=== PATIENT | female | born 1955 | race Caucasian/White ===

== ENCOUNTER 2018-02-01 18:44 | Emergency (ER) | payer MEDICAID, SELFPAY ==
[2018-02-01 18:49] VITALS: BP 119/65; PULSE 107; RESP 26; TEMP 36.8
--- NOTE | 2018-02-01 19:22 | DI.RAD_ITS ---
SYMPTOM/DIAGNOSIS: PRODUCTIVE COUGH PA AND LATERAL CHEST: The heart is normal in size. The lungs are clear. The mediastinal structures and pleura appear intact. CONCLUSION: Normal chest.
--- NOTE | 2018-02-01 19:23 | ED.GENADUL_ITS ---
Discharge Plan Disposition Patient Disposition: HOME Discharge Details Chief Complaint: RespSymp Clinical Impression: Bronchitis Primary Care Provider: Ana Blake ED Provider: Chris Mckeon Home Meds and New Rx's Prescriptions: New azithromycin 250 mg tablet 250 mg PO DAILY 4 Days Qty: 4 RF: 0 Continue albuterol sulfate [ProAir HFA] 200 PUFF HFA aerosol inhaler 2 puff Inhalation Q4H PRN PRN (Reason: Cough) Qty: 1 RF: 0 Discharge Instructions Instructions: Acute Bronchitis (ED) Additional Instructions: Please use your inhaler as prescribed for shortness of breath or wheeze. Please take the full course of antibiotic as prescribed. Please contact your primary care physician to arrange follow-up. Return to the ER for any worsening or new concerning symptoms. Referrals: Ana Blake [Primary Care Provider] - Medical Decision Making [facility] Narrative Medical decision making narrative: 62-year-old female smoker here with cough for the past 11 day . Saturating well and in no respiratory distress. She does have some rhonchi on auscultation. Chest x-ray reviewed and interpreted by me: No pneumonia Patient was advised to use her albuterol inhaler as prescribed for wheezing. I suspect she has a viral bronchitis but given smoking history and persistence of symptoms consider superimposed bacterial process. I will treat her with azithromycin and have her follow-up with her primary care physician. Patient understands the importance of timely follow-up. I did advise her to come back immediately should she have any worsening or new concerning symptoms. HPI - General Adult General Mode of arrival: ambulatory . Date/Time Provider Initiated Documentation: 02/01/18 19:11 . Limitations to Documentation: no limitations . Information obtained by: patient . HPI Narrative: 62-year-old female smoker here with chief complaint of cough. She has had a cough for the past 11 days. Cough is worsening. Cough is productive of yellow sputum. She has associated intermittent subjective fever. She also notes some intermittent shortness of breath. Patient does have a tightness in her chest specifically when she coughs or takes a deep breath. Tightness feels like congestion. She does also have some sinus congestion as well. Related Data Previous Rx's Medication Instructions Recorded albuterol sulfate [ProAir HFA] 2 puff INHALATION Q4H PRN PRN #1 03/24/15 inh azithromycin 250 mg PO DAILY 4 Days #4 tab 02/01/18 Allergies Allergy/AdvReac Type Severity Reaction Status Date / Time ciprofloxacin Allergy Verified 04/05/17 12:39 metronidazole Allergy Verified 04/05/17 12:39 Sulfa (Sulfonamide Allergy Verified 04/05/17 12:39 Antibiotics) General Stated Complaint: RespSymp TOM: 3 Review of Systems Review of Systems All systems reviewed & are unremarkable except as noted in HPI and below Constitutional Reports fever(s) ENT Reports nasal congestion Respiratory Reports as per HPI Musculoskeletal Reports myalgias PFS Social History Smoking/Tobacco Use Status: Current every day Exam Const General: cooperative, no acute distress, well developed, acute distress and not in distress Orientation: alert and awake Limitations: mental status not altered HENMT Head: normal to inspection and normocephalic Mouth: moist mucous membranes Throat: posterior oropharynx normal, uvula midline, posterior oropharynx abnormal and no uvular edema Eyes General: appearance normal, both eyes and all related structures Conjunctivae: conjunctivae normal EOM: EOM intact bilaterally Neck Neck: trachea midline, supple and no lymphadenopathy noted Resp Effort & Inspection: normal respiratory effort, cough, not labored and no respiratory distress Auscultation: clear to auscultation bilaterally, no rales, rhonchi lower bilaterally and no wheezes Cardio Jugular venous pressure: no JVD Rate: regular rate Rhythm: regular rhythm Heart Sounds: S1 normal, S2 normal, no gallops, no murmurs and no rubs GI Palpation: soft and nontender Skin General skin exam: no rashes or lesions noted and dry skin Other: warm Neuro General: alert, awake and oriented x3 Extrem General: no pedal edema Psych Appearance: grossly normal Affect: normal affect Course Vital Signs Temperature 36.8 C 02/01/18 18:49 Pulse 107 H 02/01/18 18:49 Respiratory Rate 26 H 02/01/18 18:49 Blood Pressure 119/65 02/01/18 18:49 Temperature 36.8 C 02/01/18 18:49 Pulse 107 H 02/01/18 18:49 Respiratory Rate 26 H 02/01/18 18:49 Blood Pressure 119/65 02/01/18 18:49
[2018-02-01] MEDS: Azithromycin 250 MG TAB 500 MG PO (20:39)
--- NOTE | 2018-02-01 20:52 | DI.VRAD_ITS ---
EXAM: XR Chest, 2 Views CLINICAL HISTORY: 62 years old, female; Signs and symptoms; Other: Productive cough TECHNIQUE: Frontal and lateral views of the chest. COMPARISON: CR CHEST 2 VIEWS PA,LAT 04/05/2017 12:47 PM FINDINGS: The lung rios are relatively clear bilaterally. No focal pulmonary consolidation is present. The cardiac silhouette is within normal limits. The costophrenic angles are sharp. The bony structures appear unremarkable. IMPRESSION: No evidence of acute cardiopulmonary disease. Dictated and Authenticated by: Joss Rodriguez MD. Ordering:JOSHUA CRUZ MD
== END 2018-02-01 20:47 | disposition home or self-care (01) ==
PROVIDERS: Emergency Provider Student in an Organized Health Care Education/Training Program; PCP Family Medicine
DX: J20.9 Acute bronchitis, unspecified (principal); F17.210 Nicotine dependence, cigarettes, uncomplicated
CPT/HCPCS: 99283; 71046

== ENCOUNTER 2018-06-27 18:23 | Emergency (ER) | payer MEDICAID, SELFPAY ==
[2018-06-27 18:36] VITALS: BP 118/84; PULSE 77; RESP 18; TEMP 36.8; O2SAT 97
--- NOTE | 2018-06-27 19:15 | ED.GENADUL_ITS ---
Discharge Plan Disposition Patient Disposition: HOME Discharge Details Chief Complaint: Chest/Rib Clinical Impression: Closed rib fracture Primary Care Provider: Ana Blake ED Provider: Chris Mckeon Home Meds and New Rx's Prescriptions: New lidocaine 5 % adhesive patch,medicated 1 patch TP DAILY Qty: 15 RF: 0 oxycodone 5 mg capsule 5 mg PO BID PRN PRN (Reason: severe pain) Qty: 10 RF: 0 Continued ProAir HFA 200 PUFF HFA aerosol inhaler 2 puff Inhalation Q4H PRN PRN (Reason: Cough) Qty: 1 RF: 0 Discharge Instructions Instructions: Rib Fracture (ED) Additional Instructions: Please use incentive spirometer every 2-4 hours while awake for the next 1 week. This will help prevent pneumonia bladder and lung collapse. Please take ibuprofen over the counter - dose according to label. Use lidocaine patches as prescribed or [id number] -dose according to label. Use oxycodone for severe pain only. This medication is addictive and has significant side effects. Please contact your primary care physician to arrange follow-up. Return to the ER for any worsening or new concerning symptoms. Referrals: Ana Blake [Primary Care Provider] - Medical Decision Making 19:15 --62-year-old female smoker here with severe right anterior lateral pleuritic chest pain after coughing spell yesterday. It is reproducible with tenderness on exam. Lungs clear bilaterally. Consider pneumothorax. Plan to obtain chest x-ray. Suspect rib fracture. I will treat with lidocaine patch, oxycodone, and ibuprofen. 20:13 --chest x-ray interpreted by radiology: Hyperexpanded lung rios consistent with COPD. No pneumothorax. Patient reassessed and pain improved. Incentive spirometer provided. Disposition decision was made weighing the risks and benefits of hospitalization versus outpatient treatment, the risk for further decompensation, and the patient's wishes. The patient was stable and requested discharge. Prior to discharge, my usual and customary return precautions were reviewed with the patient - this included follow-up instructions and reason to return to the emergency department if condition worsens, does not improve as expected, or other new concerns arise. HPI General Mode of arrival: ambulatory . Date/Time Provider Initiated Documentation: 06/27/18 18:45 . Limitations to Documentation: no limitations . Information obtained by: patient . HPI Narrative: 62yo f smoker here with chest pain. Patient notes that she is been coughing for a few weeks and had a heavy coughing spell during the night on Wednesday and developed sharp, severe, pleuritic pain in her right anterior lateral chest. This has persisted. Pain is currently severe. Worse with deep breath or cough. Symptoms improved with splinting and pressure over the area. No associated shortness of breath. Related Data Home Medications Medication Instructions Recorded Confirmed ProAir HFA 2 puff INHALATION Q4H PRN PRN #1 03/24/15 06/27/18 inh lidocaine 1 patch TP DAILY #15 each 06/27/18 oxycodone 5 mg PO BID PRN PRN #10 cap 06/27/18 Previous Rx's Medication Instructions Recorded ProAir HFA 2 puff INHALATION Q4H PRN PRN #1 03/24/15 inh lidocaine 1 patch TP DAILY #15 each 06/27/18 oxycodone 5 mg PO BID PRN PRN #10 cap 06/27/18 Allergies Allergy/AdvReac Type Severity Reaction Status Date / Time ciprofloxacin Allergy Verified 06/27/18 18:39 metronidazole Allergy Verified 06/27/18 18:39 Sulfa (Sulfonamide Allergy Verified 06/27/18 18:39 Antibiotics) General Stated Complaint: Chest/Rib TOM: 3 Review of Systems Constitutional Denies fever(s) Respiratory Reports as per HPI, Reports cough and Reports pain with cough Gastrointestinal Denies abdominal pain PFSH Social History Smoking and Tabacco status: Current every day Exam Const General: cooperative and uncomfortable Orientation: alert and awake [facility] Head: normocephalic and atraumatic Mouth: moist mucous membranes Eyes Conjunctivae: normal conjunctivae Sclera: normal sclerae EOM: EOM intact bilaterally Neck Neck: trachea midline and supple Resp Auscultation: clear to auscultation bilaterally, no rales, no rhonchi, no wheezes and other (Pain with deep inspiration or cough) Cardio Jugular venous pressure: no JVD Rate: regular rate and not tachycardic Rhythm: regular rhythm GI Palpation: soft, not firm, no guarding, no masses, not rigid and nontender Neuro General: alert, awake and tone normal Psych Mental Status: mental status grossly normal Course Vital Signs Temperature 36.8 C 06/27/18 18:36 Pulse 77 06/27/18 18:36 Respiratory Rate 18 06/27/18 18:36 Blood Pressure 118/84 06/27/18 18:36 Pulse Oximetry 97 06/27/18 18:36 Temperature 36.8 C 06/27/18 18:36 Pulse 77 06/27/18 18:36 Respiratory Rate 18 06/27/18 18:36 Respiratory Effort Non-Labored 06/27/18 18:39 Respiratory Depth Normal 06/27/18 18:39 Respiratory Pattern Normal 06/27/18 18:39 Blood Pressure 118/84 06/27/18 18:36 Pulse Oximetry 97 06/27/18 18:36 Pain Level 10 06/27/18 18:39
[2018-06-27] MEDS: Ibuprofen 600 MG TAB PO (19:17)
[2018-06-27] MEDS: oxyCODONE 5 MG TAB PO (19:18)
--- NOTE | 2018-06-27 19:30 | DI.RAD_ITS ---
SYMPTOM/DIAGNOSIS: RIGHT ANT LAT CHEST PAIN AFTER COUGH CHEST X-RAY: Frontal and lateral views. Comparison 02/01/18 Heart size and pulmonary vasculature are within normal limits. No focal infiltrates, effusions or pneumothoraces are identified. Degenerative changes are seen in the spine. There does appear to be mild hyperexpansion of the lungs. This may be due to underlying COPD. IMPRESSION: No acute pulmonary process.
[2018-06-27] MEDS: Lidocaine 5% Patch 1 PATCH (19:46)
[2018-06-27 19:57] VITALS: BP 112/62; PULSE 80; RESP 18; TEMP 36.7; O2SAT 95
--- NOTE | 2018-06-27 20:06 | DI.VRAD_ITS ---
EXAM: XR Chest, 2 Views EXAM DATE/TIME: 06/27/2018 7:13 PM CLINICAL HISTORY: 62 years old, female; Pain and signs and symptoms; Cough; Chest wall pain; Patient HX: Chest pain/rib pain after coughing, bb placed at site of pain TECHNIQUE: XR of the chest, 2 views. COMPARISON: SC XR CHEST 2V PA LATERAL 02/01/2018 8:13 PM FINDINGS: Lungs: Hyperexpanded lung rios consistent with COPD . No focal opacity Pleural space: Unremarkable. No pleural effusion. No pneumothorax. Heart/Mediastinum: Unremarkable. No cardiomegaly. Bones/joints: Unremarkable. IMPRESSION: Hyperexpanded lung rios consistent with COPD Dictated and Authenticated by: Ridge Johnson MD. Ordering:JOSHUA Perez MD
== END 2018-06-27 20:29 | disposition home or self-care (01) ==
PROVIDERS: Emergency Provider Student in an Organized Health Care Education/Training Program; PCP Family Medicine
DX: S22.31XA Fracture of one rib, right side, initial encounter for closed fracture (principal); X58.XXXA Exposure to other specified factors, initial encounter; F17.210 Nicotine dependence, cigarettes, uncomplicated
CPT/HCPCS: 99283; 71046

== ENCOUNTER 2019-08-03 09:41 | Outpatient (REF) | payer MEDICAID, SELFPAY ==
--- NOTE | 2019-08-03 09:15 | SKI_PTH ---
PATIENT: Winter Thomas LOC: [facility] U#:[id number] AGE/SX: 63/F ROOM: RE08/03/[address]: Ana Blake : 1955 BED: DIS: 08/03/2019 SPEC #: [id number] RECD: 08/03/19 12:45 STATUS: JEEVAN REQ #: [id number] GIDEON: 08/03/19 09:[address]: Ana Blake DEPT: Surgical Specimen RECD BY: [place] Estrada Tissues: 1 - SKIN BIOPSY(SHAVE/PUNCH) Procedures: SKIN LEVEL 4 Comments: [id number]
== END 2019-08-03 10:01 ==
LOC: NCHCN 09:41
PROVIDERS: PCP Family Medicine; Visit Provider Family Medicine
DX: L82.0 Inflamed seborrheic keratosis (principal)
CPT/HCPCS: 88305

== ENCOUNTER 2020-03-19 01:12 | Outpatient (CLI) | payer MEDICAID, SELFPAY ==
--- NOTE | 2020-03-19 16:10 | DI.MAMMO_ITS ---
EXAM: MG MAMMO SCREENING CLINICAL HISTORY: SCREENING,Z12.31 TECHNIQUE: Bilateral full field digital CC and MLO mammographic images were obtained with 3D tomosyn thesis and utilizing computer aided detection (CAD). COMPARISON: Available for comparison. FINDINGS: Masses/Architectural Distortion: None seen. Microcalcifications: No suspicious pleomorphic-type are seen. Skin Thickening/Nipple Retraction: None. IMPRESSION: 1. No significant interval change with no specific features of malignancy noted. 2. Unless there is more urgent need, screening mammography is recommended, as per [employer] [place] [employer] guidelines. BI-RADS Category 1 - Negative Breast Density - Category B - Scattered areas of fibroglandular density A negative radiographic report should not delay biopsy if a dominant or clinically suspicious mass is present. Up to ten percent of cancers are not identified on mammography. A negative report may reinforce clinical impression. Adenosis and dense breasts may obscure an underlying neoplasm. False positive reports average 6 to 10%. Patient will receive a letter notifying them of these results.
== END 2020-03-19 01:32 ==
PROVIDERS: PCP Family Medicine; Visit Provider Family Medicine
DX: Z12.31 Encounter for screening mammogram for malignant neoplasm of breast (principal)
CPT/HCPCS: 77063; 77067

== ENCOUNTER 2021-07-25 20:31 | Emergency (ER) | payer MEDICAID, SELFPAY ==
[2021-07-25] VITALS (38 sets, daily range): BP systolic 95–137; BP diastolic 41–97; PULSE 58–87; RESP 1–27; TEMP 36.5; O2SAT 94–100
--- NOTE | 2021-07-25 20:30 | RT.EKG_ITS ---
APPROVED REPORT Exam: Resting ECG Reason for Exam: chest pain Patient Location: E HR:72 bpm ECG Measurements Heart Rate 72 AXIS WI 183 P 64 QRSd 93 QRS 71 QT 394 T 31 QTc 431 Conclusion Sinus rhythm...normal P axis, V-rate 60- 99 Physician: Sinus rhythm, intervals normal, no significant ST elevation or depression. No evidence of STEMI. Patient does have an inverted T wave in V1, and a minimal trace less than a millimeter of el evation in V2, no significant Q waves. However review of prior EKG from 2017 demonstrates no changes from that EKG compared to today's EKG.
--- NOTE | 2021-07-25 20:51 | W.ED.GENAD ---
Discharge Plan Disposition Patient Disposition: HOME Condition: Good Discharge Details Clinical Impression: Mild reactive airways disease Primary Care Provider: Ana Blake ED Provider: Bridger Rasmussen Home Meds and New Rx's Prescriptions: Discontinued albuterol sulfate [ProAir HFA] 200 PUFF HFA aerosol inhaler 2 puff Inhalation Q4H PRN PRN (Reason: Cough) Qty: 1 0RF Label Comments: rarely uses due to heart racing Rx Instructions: cough or shortness of breath Discharge Instructions Instructions: Reactive Airways Disease (ED) Additional Instructions: At this time your work-up thankfully shows no signs of heart attack or other significant abnormality. I suspect the cause of your symptoms for the shortness of breath is reactive airway disease/asthma. As-year-old inhaler can cause your heart to race a little, we will give you a new inhaler that has lower likelihood of causing this. Please take it, 2 puffs every 6 hours as needed. If you notice any worsening of your symptoms, or any new symptoms such as vomiting, diarrhea, fever, chills, shortness of breath, chest pain, numbness, weakness, or fainting , please return immediately to the emergency department for reevaluation. Please follow up with your primary care provider as soon as possible for reassessment and reevaluation. As always, it was a pleasure participating in your medical care today. Referrals: Ana Blake [Primary Care Provider] - Medical Decision Making <Ortiz Clark DO - Last Filed: 07/25/21 22:51> This is a 65-year-old female who admits to a past medical history of mild reactive airway disease who denies any other past medical history and pain, has not seen a medical provider in years nor has been assessed for any medical problems in years. She presents today for evaluation of chest pain. Patient states that at 3 AM last night she developed a sudden onset of stabbing pain in her chest and awoke her out of sleep. She gave it some time and the pain gradually sided. To the point that she was able to go back to sleep. It persisted for very mildly throughout the day, and then at 11:30 AM this afternoon she developed sudden onset burning sensation in her chest and heaviness in her chest. There is no exertional component. She did slightly short of breath but she states she always feels short of breath secondary to her smoking. Symptoms persisted throughout the night and so she came in this evening for further assessment. She denies any tearing or ripping sensation. She denies any pain in her arms or neck. She denies any cough that is new, fever or chills. She does admit to a family history of coronary artery disease in her siblings. She denies any long trip, surgeries or procedures recently. She is not on estrogen. She has no personal history of blood clots. She denies any personal cardiac history. No other complaints at this time. No other modifying factors. Physical exam demonstrates no significant abnormalities for the lung or chest. No calf tenderness. Lungs are clear. Bedside limited on the sound demonstrates no evidence of pericardial effusion or tamponade. She demonstrate no evidence of significant heart failure. Right ventricle does not appear overly enlarged. Patient symptoms are atypical. Pulses equal bilaterally. Blood pressure is stable. Concern for cardiac etiology is certainly high in the differential, especially with her family history and tobacco use. Additionally blood clot/PE less likely, dissection even less likely based on clinical assessment. We will get screening D-dimer, evaluate for cardiac etiology, DuoNeb to evaluate for potential component of reactive airway disease causing her chest tightness and shortness of breath. Will give a GI cocktail to help further elicit response to the burning in her stomach, given full dose aspirin, monitor closely and reassess. 10:13 PM Patient was given a breathing treatment and after this she felt much much better. She states that this completely resolved her shortness of breath, chest tightness and chest burning. I suspect that the patient's symptoms were reflective of mild reactive airway disease. CBC is normal, D-dimer is normal, VBG is unremarkable. Electrolytes normal, renal function stable. Opponent normal, proBNP normal suggesting no signs of heart strain. Lipase normal. At this time I feel that the patient's symptoms are likely more related to reactive airway disease and unlikely to be related to ACS would be reassuring work-up, the unchanged EKG in the normal opponent. Out of an abundance of precaution secondary to the patient's family risk factors we will get a repeat troponin prior to discharge, however if this is unremarkable I do feel that patient will be a good candidate for discharge home. Patient will be signed out to my colleague Dr. Rasmussen for reassessment after repeat troponin EKG 20: 47 Sinus rhythm, intervals normal, no significant ST elevation or depression. No evidence of STEMI. Patient does have an inverted T wave in V1, and a minimal trace less than a millimeter of elevation in V2, no significant Q waves. However review of prior EKG from 2017 demonstrates no changes from that EKG compared to today's EKG. FINDINGS: Lungs: Unremarkable. No consolidation. No edema. Pleural spaces: Unremarkable. No pleural effusion. No pneumothorax. Heart/Mediastinum: Unremarkable. No cardiomegaly. Bones/joints: [id number] degenerative thoracic spine features. IMPRESSION: 1. No acute findings. 2. No infiltrates or edema. 3. No pleural effusion. Thank you for allowing us to participate in the care of your patient. Dictated and Authenticated by: Man Mendoza M <Bridger Rasmussen MD - Last Filed: 07/25/21 23:53> This is a 65-year-old female who admits to a past medical history of mild reactive airway disease who denies any other past medical history and pain, has not seen a medical provider in years nor has been assessed for any medical problems in years. She presents today for evaluation of chest pain. Patient states that at 3 AM last night she developed a sudden onset of stabbing pain in her chest and awoke her out of sleep. She gave it some time and the pain gradually sided. To the point that she was able to go back to sleep. It persisted for very mildly throughout the day, and then at 11:30 AM this afternoon she developed sudden onset burning sensation in her chest and heaviness in her chest. There is no exertional component. She did slightly short of breath but she states she always feels short of breath secondary to her smoking. Symptoms persisted throughout the night and so she came in this evening for further assessment. She denies any tearing or ripping sensation. She denies any pain in her arms or neck. She denies any cough that is new, fever or chills. She does admit to a family history of coronary artery disease in her siblings. She denies any long trip, surgeries or procedures recently. She is not on estrogen. She has no personal history of blood clots. She denies any personal cardiac history. No other complaints at this time. No other modifying factors. Physical exam demonstrates no significant abnormalities for the lung or chest. No calf tenderness. Lungs are clear. Bedside limited on the sound demonstrates no evidence of pericardial effusion or tamponade. She demonstrate no evidence of significant heart failure. Right ventricle does not appear overly enlarged. Patient symptoms are atypical. Pulses equal bilaterally. Blood pressure is stable. Concern for cardiac etiology is certainly high in the differential, especially with her family history and tobacco use. Additionally blood clot/PE less likely, dissection even less likely based on clinical assessment. We will get screening D-dimer, evaluate for cardiac etiology, DuoNeb to evaluate for potential component of reactive airway disease causing her chest tightness and shortness of breath. Will give a GI cocktail to help further elicit response to the burning in her stomach, given full dose aspirin, monitor closely and reassess. 10:13 PM Patient was given a breathing treatment and after this she felt much much better. She states that this completely resolved her shortness of breath, chest tightness and chest burning. I suspect that the patient's symptoms were reflective of mild reactive airway disease. CBC is normal, D-dimer is normal, VBG is unremarkable. Electrolytes normal, renal function stable. Opponent normal, proBNP normal suggesting no signs of heart strain. Lipase normal. At this time I feel that the patient's symptoms are likely more related to reactive airway disease and unlikely to be related to ACS would be reassuring work-up, the unchanged EKG in the normal opponent. Out of an abundance of precaution secondary to the patient's family risk factors we will get a repeat troponin prior to discharge, however if this is unremarkable I do feel that patient will be a good candidate for discharge home. Patient will be signed out to my colleague Dr. Rasmussen for reassessment after repeat troponin EKG 20: 47 Sinus rhythm, intervals normal, no significant ST elevation or depression. No evidence of STEMI. Patient does have an inverted T wave in V1, and a minimal trace less than a millimeter of elevation in V2, no significant Q waves. However review of prior EKG from 2017 demonstrates no changes from that EKG compared to today's EKG. FINDINGS: Lungs: Unremarkable. No consolidation. No edema. Pleural spaces: Unremarkable. No pleural effusion. No pneumothorax. Heart/Mediastinum: Unremarkable. No cardiomegaly. Bones/joints: Wldc-om-ihskedaw degenerative thoracic spine features. IMPRESSION: 1. No acute findings. 2. No infiltrates or edema. 3. No pleural effusion. Thank you for allowing us to participate in the care of your patient. Dictated and Authenticated by: Man Mendoza M Patient signed out to me pending delta troponin with plan if this is negative to likely d/c, she is asymptomatic still and feels well enough to go home. .Advised to follow up with pcp and return precautions given HPI <Ortiz Clark DO - Last Filed: 07/25/21 22:51> General Date/Time Provider Initiated Documentation: 07/25/21 20:31. HPI Narrative: This is a 65-year-old female who admits to a past medical history of mild reactive airway disease who denies any other past medical history and pain, has not seen a medical provider in years nor has been assessed for any medical problems in years. She presents today for evaluation of chest pain. Patient states that at 3 AM last night she developed a sudden onset of stabbing pain in her chest and awoke her out of sleep. She gave it some time and the pain gradually sided. To the point that she was able to go back to sleep. It persisted for very mildly throughout the day, and then at 11:30 AM this afternoon she developed sudden onset burning sensation in her chest and heaviness in her chest. There is no exertional component. She did slightly short of breath but she states she always feels short of breath secondary to her smoking. Symptoms persisted throughout the night and so she came in this evening for further assessment. She denies any tearing or ripping sensation. She denies any pain in her arms or neck. She denies any cough that is new, fever or chills. She does admit to a family history of coronary artery disease in her siblings. She denies any long trip, surgeries or procedures recently. She is not on estrogen. She has no personal history of blood clots. She denies any personal cardiac history. No other complaints at this time. No other modifying factors. Related Data Allergies Allergy/AdvReac Type Severity Reaction Status Date / Time ciprofloxacin Allergy Verified 07/25/21 20:50 metronidazole Allergy Verified 07/25/21 20:50 Sulfa (Sulfonamide Allergy Verified 07/25/21 20:50 Antibiotics) General Stated Complaint: Chest Pain TOM: 2 Review of Systems <Ortiz Clark DO - Last Filed: 07/25/21 22:51> All systems reviewed & are unremarkable except as noted in HPI and below PFSH <Ortiz Clark DO - Last Filed: 07/25/21 22:51> All Active Problems (Updated 07/25/21 @ 22:15 by Ortiz Clakr DO) Acute viral syndrome (Acute) Mild reactive airways disease (Acute) Social History Smoking/Tobacco Use Status: Current every day Smoking risk assessment performed?: Yes Alcohol Intake: never Drug use: Never Substance use type: does not use Do you feel safe at home: Yes Do you feel safe in your relationship?: Yes Exam <Ortiz Clark DO - Last Filed: 07/25/21 22:51> Narrative Exam Narrative: 1.Const: Well-nourished, Well-developed, appearing stated age 2.Eyes: PERRL, no conjunctival injection, and symmetrical lids. 3.ENT: Atraumatic external nose and ears. Moist MM. Neck: Symmetric, trachea midline, No thyromegaly. 4.CVS: +S1/S2, No murmurs or gallops. Peripheral pulses 2+ and equal in all extremities. Brisk capillary refill in all extremities. 5.RESP: Unlabored respiratory effort. Clear to auscultation bilaterally. No wheezes rales or rhonchi 6.GI: Soft, Nontender/Nondistended, No hepatosplenomegaly. No guarding or rebound. 7.MSK: Normocephalic/Atraumatic, Extremities w/o deformity or ttp No cyanosis or clubbing, Normal movement of all extremities 8.Skin: Warm, Dry. No rashes or lesions. No rash or lesions to suggest shingles. 9.Neuro: machine preservative filler II-XII grossly intact. Sensation grossly intact, no focal neurologic deficits. 10.Psych: (AAO) x3. Appropriate mood and affect Course <Ortiz Clark DO - Last Filed: 07/25/21 22:51> Vital Signs Vital signs: Vital Signs Temperature 36.5 C 07/25/21 20:36 Pulse 79 07/25/21 20:36 Respiratory Rate 19 07/25/21 20:36 Blood Pressure 137/90 07/25/21 20:36 Pulse Oximetry 98 07/25/21 20:36 Temperature 36.5 C 07/25/21 20:36 Temperature Source Skin 07/25/21 20:36 Pulse 79 07/25/21 20:36 Respiratory Rate 19 07/25/21 20:36 Blood Pressure 137/90 07/25/21 20:36 Blood Pressure Position Sitting 07/25/21 20:36 Pulse Oximetry 98 07/25/21 20:36 Oxygen Delivery Method Room Air 07/25/21 20:36 Oxygen Flow Rate 0 07/25/21 20:36 Pain Level 3 07/25/21 20:36 Sign Out <Ortiz Clark DO - Last Filed: 07/25/21 22:51> Sign Out Data: Sign Out Comment: Pending repeat troponin. Last updated by Ortiz Clark DO at 07/25/21 22:49
[2021-07-25 21:02] LABS: Abs Immature Grans 0.03 10^3/uL (0.0-0.06); Absolute Basophil Count 0.04 10^3/uL (0.0-0.2); Absolute Eosinophil Count 0.25 10^3/uL (0.0-0.7); Absolute Lymphocyte Count 3.32 10^3/uL (1.2-3.4); Absolute Monocyte Count 0.74 10^3/uL (0.1-0.8); Absolute Neutrophil Count 5.68 10^3/uL (1.2-6.7); Basophils % 0.4; Eosinophils % 2.5; HCT 38.1 % (36.0-46.0); HGB 12.3 g/dL (11.2-15.7); Immature Grans % 0.3; MCH 28.8 pg (27.0-33.0); MCHC 32.3 % (32.0-36.0); MCV 89.2 fL (80-95); MPV 9.7 fL (8.0-11.0); Monocytes % 7.4; Neutrophils % 56.4; Nucleated RBC 0 %; Platelet Count 370 10^3/uL (130-400); RBC 4.27 10^6/uL (3.93-5.22); RDW-SD 42.3 fL; WBC 10.06 10^3/uL (4.4-10.8)
[2021-07-25 21:04] LABS: BE (Venous) 2 mmol/L (-2-3); HCO3 (Venous) 26 mmol/L (23-28); O2 Sat (Venous) 83 %; TCO2 (Venous) 23 mmol/L (24-29); pCO2 (Venous) 38 mmHg (41-51); pH (Venous) 7.44 (7.31-7.41); pO2 (Venous) 41 mmHg
[2021-07-25] MEDS: Aspirin 81 MG CHEW 324 MG CH (21:07)
[2021-07-25] MEDS: Albuterol/Ipratropium 3 ML UPD VIAL UPD (21:09)
[2021-07-25] MEDS: Normal Saline 1,000 ML 150 ML IV (21:14)
[2021-07-25 21:32] LABS: ALT 28 U/L (14-59); AST 23 U/L (15-37); Albumin 3.9 g/dL (3.4-5.0); Alkaline Phosphatase 62 U/L (46-116); BUN 26 mg/dL (7-18); Bilirubin, Total 0.3 mg/dL (0.2-1.0); CREATININE 1.1 mg/dL (0.55-1.02); Calcium 9.8 mg/dL (8.5-10.1); Chloride 105 mmol/L (98-107); Estimated GFR 50.17 (mL/min/1.73m2); Glucose 119 mg/dL (74-106); Lipase 75 U/L (73-393); NT-proBNP 112 pg/mL (<300); Potassium 4.3 mmol/L (3.5-5.1); Sodium 139 mmol/L (136-145); Total Protein 7.8 g/dL (6.4-8.2); Troponin I < 50 ng/L (<or=60)
[2021-07-25 21:42] LABS: D-Dimer 361 ng/mlFEU (<500)
--- NOTE | 2021-07-25 21:45 | DI.RAD_ITS ---
Exam(s) XR CHEST 2V PA LATERAL EXAM: XR CHEST 2V PA LATERAL CLINICAL HISTORY: sob, cewntral chest heaviness. TECHNIQUE: 2D digital imaging was performed. COMPARISON: CR XR CHEST 2V PA LATERAL from 06/27/2018 FINDINGS: Two views Heart size is normal. The mediastinum is not widened. Lungs are clear. No infiltrates nor pleural effusions. IMPRESSION: No acute pulmonary findings. DATA REPOSITORY: RADIATION DOSE DELIVERED:
--- NOTE | 2021-07-25 22:20 | DI.VRAD_ITS ---
PROCEDURE INFORMATION: Exam: XR Chest Exam date and time: 07/25/2021 9:55 PM Age: 65 years old Clinical indication: Other: Chest heaviness TECHNIQUE: Imaging protocol: XR of the chest. Views: 2 views. COMPARISON: CR XR CHEST 2V PA LATERAL 06/27/2018 7:23 PM FINDINGS: Lungs: Unremarkable. No consolidation. No edema. Pleural spaces: Unremarkable. No pleural effusion. No pneumothorax. Heart/Mediastinum: Unremarkable. No cardiomegaly. Bones/joints: Erml-ri-amhxkumd degenerative thoracic spine features. IMPRESSION: 1. No acute findings. 2. No infiltrates or edema. 3. No pleural effusion. Dictated and Authenticated by: Man Mendoza MD. Ordering:BARTOLO Alcantar MD
[2021-07-25] MEDS: Inhaler, Assist Device 1 EACH MC (22:27)
[2021-07-25] MEDS: Levalbuterol HFA 15 GM INH 2 PUFF IH (22:31)
--- NOTE | 2021-07-25 22:45 | RT.EKG_ITS ---
APPROVED REPORT Exam: Resting ECG Reason for Exam: chest pain Patient Location: E HR:63 bpm ECG Measurements Heart Rate 63 AXIS MS 200 P 71 QRSd 93 QRS 77 QT 427 T 50 QTc 439 Conclusion Sinus rhythm...normal P axis, V-rate 60- 99
[2021-07-25 23:50] LABS: Troponin I < 50 ng/L (<or=60)
== END 2021-07-26 00:12 | disposition home or self-care (01) ==
PROVIDERS: Student in an Organized Health Care Education/Training Program; Emergency Provider Emergency Medicine; PCP Family Medicine
DX: J45.20 Mild intermittent asthma, uncomplicated (principal); F17.210 Nicotine dependence, cigarettes, uncomplicated; R07.9 Chest pain, unspecified; R06.02 Shortness of breath
CPT/HCPCS: 36415; 80053; 82805; 83690; 93005; 94640; 96360; 99284; 71046; 83880; 84484; 85025; 85379; 93010; J7620

== ENCOUNTER 2022-06-21 08:37 | Emergency (ER) | payer MEDICAID, SELFPAY ==
[2022-06-21 08:43] VITALS: BP 133/65; PULSE 95; RESP 18; TEMP 36.7; O2SAT 99
--- NOTE | 2022-06-21 09:00 | DI.CT_ITS ---
Exam(s) CT ABDOMEN PELVIS WO EXAM: CT ABDOMEN PELVIS WO CLINICAL HISTORY: LLQ abdominal pain. TECHNIQUE: Imaging Protocol: Axial computed tomography images with coronal and sagittal reformatted images were created and reviewed. COMPARISON: CT ABD PELVIS WITH CONTRAST from 03/23/2016 CT ABD PELVIS WITH CONTRAST from 11/01/2017 FINDINGS: ABDOMEN: Lung Bases: There is a small hiatal hernia. Liver: Normal density. There are numerous hepatic cysts again seen. Gallbladder and biliary tract: No radiodense calculus or biliary ductal dilation. Pancreas: Normal density, no abnormal calcifications or inflammatory process. Spleen: Normal. Kidneys: Normal size, contour and axis.There is a nonobstructing 2 mm stone in the right kidney. The re is stable bilateral renal cysts. Adrenal glands: There are stable bilateral adrenal nodules likely reflecting adenomas. Lymph nodes: Within normal limits. Abdominal Aorta: Abdominal portion non-dilated. Atherosclerosis. PELVIS: Bladder:Symmetric distention, no gross wall thickening. Bowel: There is diverticulosis of the colon. There is bowel wall thickening and pericolonic inflamma tory changes seen in the proximal sigmoid colon consistent with acute diverticulitis. No abscess or free air. There is no evidence of bowel obstruction. Appendix is unremarkable. Peritoneal cavity: No ascites, collection or mesenteric inflammatory response. No free air. Reproductive organs: Unremarkable as visualized. Bones: Within normal limits. Soft Tissues: There is a small fat containing umbilical hernia. IMPRESSION: Findings of acute diverticulitis involving the proximal sigmoid colon. No abscess or free air. RADIATION DOSE DELIVERED: 1,011.4mGy.cm Total DLP DATA REPOSITORY: All CT scans at this facility are submitted to the National Radiology Data Registry (NRDR) Dose Index Registry (DIR) with the [employer] (ACR). RADIATION OPTIMIZATION: All CT scans at this facility use at least one of these dose optimization te chniques: automated exposure control; mA and/or kV adjustment per patient size (includes targeted exa ms where dose is matched to clinical indication); or iterative reconstruction.
--- NOTE | 2022-06-21 09:27 | DI.VRAD_ITS ---
PROCEDURE INFORMATION: Exam: CT Abdomen And Pelvis Without Contrast Exam date and time: 06/21/2022 9:16 AM Age: 66 years old Clinical indication: Other: Llq abdominal pain TECHNIQUE: Imaging protocol: Computed tomography of the abdomen and pelvis without contrast. Radiation optimization: All CT scans at this facility use at least one of these dose optimization techniques: automated exposure control; mA and/or kV adjustment per patient size (includes targeted exams where dose is matched to clinical indication); or iterative reconstruction. COMPARISON: CT ABD PELVIS WITH CONTRAST 01/11/2017 09:11 FINDINGS: Lungs: Visualized lung bases are clear. Liver: Liver contains multiple cysts as seen on previous exam. No mass or ductal dilatation. Gallbladder and bile ducts: Normal. No calcified stones. No ductal dilation. Pancreas: Normal. No mass or ductal dilation. Spleen: Normal. No splenomegaly. Adrenal glands: Normal. No mass. Kidneys and ureters: 6.6 cm cyst in the upper pole of the left kidney and 5.1 cm cyst in the lower pole of the right kidney. No calculus or obstruction. Stomach and bowel: Stomach and small bowel are normal. There is diverticular disease in the descending and sigmoid colon and in the left lower quadrant at the juncture of the sigmoid and descending segments there is focal wall thickening and surrounding inflammatory stranding indicative of acute diverticulitis. No abscess or perforation. Appendix: No evidence of appendicitis. Intraperitoneal space: Unremarkable. No free air. No significant fluid collection. Vasculature: Mild aortic atherosclerosis. Lymph nodes: No enlarged retroperitoneal or mesenteric lymph nodes. Urinary bladder: No mass or wall thickening. Reproductive: Unremarkable as visualized. Bones/joints: Unremarkable. No acute fracture. No lytic lesion. Soft tissues: Unremarkable. IMPRESSION: Segment of acute diverticulitis involving the distal descending and proximal sigmoid colon in the left lower quadrant. Dictated and Authenticated by: Jim Jeff MD. Ordering:RASTA Lovelace MD
[2022-06-21 09:43] LABS: Abs Immature Grans 0.02 10^3/uL (0.0-0.06); Absolute Basophil Count 0.04 10^3/uL (0.0-0.2); Absolute Eosinophil Count 0.12 10^3/uL (0.0-0.7); Absolute Lymphocyte Count 2.56 10^3/uL (1.2-3.4); Absolute Monocyte Count 0.76 10^3/uL (0.1-0.8); Absolute Neutrophil Count 6.39 10^3/uL (1.2-6.7); Basophils % 0.4; Eosinophils % 1.2; HCT 39.1 % (36.0-46.0); HGB 12.9 g/dL (11.2-15.7); Immature Grans % 0.2; Lymphocytes % 25.9; MCH 28.8 pg (27.0-33.0); MCV 87 fL (80-95); Monocytes % 7.7; Neutrophils % 64.6; Platelet Count 324 10^3/uL (130-400); RBC 4.48 10^6/uL (3.93-5.22); RDW 12.8 % (11.7-14.6); RDW-SD 40.9 fL; WBC 9.89 10^3/uL (4.4-10.8)
[2022-06-21 10:02] LABS: ALT 16 U/L (14-59); AST 15 U/L (15-37); Albumin 3.5 g/dL (3.4-5.0); Alkaline Phosphatase 69 U/L (46-116); BUN 18 mg/dL (7-18); Bilirubin, Total 0.3 mg/dL (0.2-1.0); CREATININE 1.1 mg/dL (0.55-1.02); Calcium 9.3 mg/dL (8.5-10.1); Chloride 106 mmol/L (98-107); Estimated GFR 56.11 (mL/min/1.73m2); Glucose 102 mg/dL (74-106); Lipase 25 U/L (16-77); Potassium 3.9 mmol/L (3.5-5.1); Sodium 140 mmol/L (136-145); Total Protein 7.2 g/dL (6.4-8.2)
--- NOTE | 2022-06-21 10:23 | ED.GENADUL_ITS ---
Discharge Plan Disposition Patient Disposition: Home Condition: Stable Discharge Details Clinical Impression: Diverticulitis Primary Care Provider: Ana Blake ED Provider: [place]ia Acevedo Home Meds and New Rx's Prescriptions: New amoxicillin-pot clavulanate 875-125 mg tablet 1 tab PO BID Qty: 14 0RF Continued moxifloxacin 400 mg Tablet 400 mg PO DAILY nicotine [Nicoderm CQ] 21 mg/24 hr Patch 24 Hour 1 patch transdermal DAILY albuterol sulfate 90 mcg/actuation Hfa Aerosol Inhaler 2 puff INHALATION Q4-5H PRN Discharge Instructions Additional Instructions: Take antibiotics as prescribed Yogurt daily while on antibiotic Return earlier should you have worsening pain, fever, chills, or with any new or progressing symptoms Referrals: Ana Blake [Primary Care Provider] - Medical Decision Making 66-year-old female presents with left lower quadrant tenderness reportedly similar to patient's prior episodes of diverticulitis in the past CT abdomen and pelvis shows evidence of acute diverticulitis, noncontrast ordered as patient states she is allergic to IV contrast Baseline creatinine of 1.1, labs without significant acute abnormality Placed on Augmentin secondary to medication allergies No evidence of obvious perforation and clinical exam inconsistent Recheck with primary care physician recommended on Wednesday or Wednesday of next week Return precautions reviewed and patient expressed understanding desires Medical Records Medical records reviewed: Yes I reviewed the patient's medical records. Lab Data Lab results reviewed: Yes I reviewed the patient's lab results. HPI General Date/Time Provider Initiated Documentation: 06/21/22 08:41 . HPI Narrative: This 66-year-old female presents with report of left lower quadrant pain which started yesterday. She states she has been eating a lot of chips . Denies any fever or chills. Denies chest pain or shortness of breath. Denies fever or chills. Has a history of diverticulitis in the past that feels similarly per patient. Related Data Home Medications Medication Instructions Recorded Confirmed albuterol sulfate 90 mcg/actuation 2 puff inhalation Q4-5H PRN 06/21/22 06/21/22 aerosol inhaler amoxicillin 875 mg-potassium 1 tab PO BID #14 tabs 06/21/22 clavulanate 125 mg tablet moxifloxacin 400 mg tablet 400 mg PO DAILY 06/21/22 06/21/22 nicotine 21 mg/24 hr daily 1 patch transdermal DAILY 06/21/22 06/21/22 transdermal patch (Nicoderm CQ) Previous Rx's Medication Instructions Recorded amoxicillin 875 mg-potassium 1 tab PO BID #14 tabs 06/21/22 clavulanate 125 mg tablet Allergies Allergy/AdvReac Type Severity Reaction Status Date / Time baclofen Allergy Severe Unverified 06/21/22 09:02 doxycycline Allergy Severe Unverified 06/21/22 09:02 bupropion [From Zyban] Allergy Mild Unverified 06/21/22 09:02 ciprofloxacin Allergy Verified 07/25/21 20:50 metronidazole Allergy Verified 07/25/21 20:50 Sulfa (Sulfonamide Allergy Verified 07/25/21 20:50 Antibiotics) General Stated Complaint: Abd Prob TOM: 3 PFSH All Active Problems (Updated 06/21/22 @ 10:30 by ARDEN Brown) Acute viral syndrome (Acute) Diverticulitis (Chronic) Social History Smoking/Tobacco Use Status: Current every day Tobacco Type: cigarettes Smoking risk assessment performed?: Yes Alcohol Intake: never Drug use: Never Substance use type: does not use Do you feel safe at home: Yes Do you feel safe in your relationship?: Yes Exam Const General: cooperative, comfortable and no acute distress Orientation: alert and oriented x3 Eyes Sclera: sclerae normal Resp Effort & Inspection: normal respiratory effort Auscultation: clear to auscultation bilaterally Cardio Rate: regular rate Rhythm: regular rhythm GI Other: Left lower quadrant tenderness, no CVA tenderness Skin General skin exam: no rashes or lesions noted Neuro General: patient alert and patient oriented x3 Extrem Other: Distal pulses intact Course Vital Signs Vital signs: Vital Signs Temperature 36.7 C 06/21/22 08:43 Pulse 95 H 06/21/22 08:43 Respiratory Rate 18 06/21/22 08:43 Blood Pressure 133/65 06/21/22 08:43 Pulse Oximetry 99 06/21/22 08:43 Temperature 36.7 C 06/21/22 08:43 Temperature Source Temporal Artery Scan 06/21/22 08:43 Pulse 95 H 06/21/22 08:43 Respiratory Rate 18 06/21/22 08:43 Respiratory Effort Non-Labored 06/21/22 08:48 Blood Pressure 133/65 06/21/22 08:43 Blood Pressure Position Sitting 06/21/22 08:43 Pulse Oximetry 99 06/21/22 08:43 Oxygen Delivery Method Room Air 06/21/22 08:43 Oxygen Flow Rate 0 06/21/22 08:43 Lab/Test Results Lab/Test Results: Laboratory Tests Range/Units 06/21/22 06/21/22 09:35 09:35 WBC (4.4-10.8) 10^3/uL 9.89 RBC (3.93-5.22) 10^6/uL 4.48 Hgb (11.2-15.7) g/dL 12.9 Hct (36.0-46.0) % 39.1 MCV (80-95) fL 87 MCH (27.0-33.0) pg 28.8 MCHC (32.0-36.0) % 33.0 RDW (11.7-14.6) % 12.8 Plt Count (130-400) 10^3/uL 324 MPV (8.0-11.0) fL 10.0 Immature Gran % 0.2 Neutrophils % 64.6 Lymphocytes % 25.9 Monocytes % 7.7 Eosinophils % 1.2 Basophils % 0.4 Nucleated RBC % (0.0-0.3) % 0.0 Absolute Neutrophils (1.2-6.7) 10^3/uL 6.39 Absolute Lymphocytes (1.2-3.4) 10^3/uL 2.56 Absolute Monocytes (0.1-0.8) 10^3/uL 0.76 Absolute Eosinophils (0.0-0.7) 10^3/uL 0.12 Absolute Basophils (0.0-0.2) 10^3/uL 0.04 Sodium (136-145) mmol/L 140 Potassium (3.5-5.1) mmol/L 3.9 Chloride (98-107) mmol/L 106 Carbon Dioxide (21.0-32.0) mmol/L 26.0 Anion Gap (3-11) mmol/L 8.0 BUN (7-18) mg/dL 18 Creatinine (0.55-1.02) mg/dL 1.1 H Est GFR (CKD-EPI 2020) (mL/min/1.73m2) 56.11 Glucose (74-106) mg/dL 102 Calcium (8.5-10.1) mg/dL 9.3 Total Bilirubin (0.2-1.0) mg/dL 0.3 AST (15-37) U/L 15 ALT (14-59) U/L 16 Alkaline Phosphatase (46-116) U/L 69 Total Protein (6.4-8.2) g/dL 7.2 Albumin (3.4-5.0) g/dL 3.5 Lipase (16-77) U/L 25
[2022-06-21 10:33] LABS: Bilirubin Negative (Negative); Blood Moderate (Negative); Clarity Clear (Clear); Glucose Negative (Negative); Ketones Negative (Negative); Leukocyte Esterase Small (Negative); Nitrite Positive (Negative); Specific Gravity >= 1.030 (1.005-1.025); Urobilinogen 0.2 EU/dL (Up TO 0.2); pH 5.5 (5-8)
[2022-06-21 11:03] LABS: Bacteria Moderate HPF (Negative); C & S Indicated? No/Sq. Contamination; Casts Negative LPF (Negative); Crystals Negative HPF (Negative); Epithelial Cells Moderate HPF (Negative); Mucus Moderate (Negative); RBC 20-50 HPF (0-2)
== END 2022-06-21 10:38 | disposition home or self-care (01) ==
PROVIDERS: Emergency Provider Physician Assistant; PCP Family Medicine
DX: K57.92 Diverticulitis of intestine, part unspecified, without perforation or abscess without bleeding (principal)
CPT/HCPCS: 36415; 80053; 83690; 99284; 74176; 81003; 81015; 85025

== ENCOUNTER 2022-07-14 01:48 | Outpatient (CLI) | payer MEDICAID, SELFPAY ==
--- NOTE | 2022-07-14 | DI.MAMMO_ITS ---
Exam(s) MAMMO SCREENING EXAM: MAMMO SCREENING CLINICAL HISTORY: SCREENING,Z12.39. TECHNIQUE: Bilateral full field digital CC and MLO mammographic images were obtained with 3D tomosyn thesis and utilizing computer aided detection (CAD). COMPARISON: Prior mammograms were reviewed. FINDINGS: There has been no significant change in the appearance and distribution of the fibroglandular tissue. Small microcalcification group in the left breast is unchanged from prior mammograms. There are no new spiculated masses nor new malignant appearing microcalcification groups. There is no significant architectural distortion nor skin thickening-retraction. IMPRESSION: Stable benign findings. No radiographic evidence of malignancy. BI-RADS Category 2 - Benign Findings Breast Density - Category B - Scattered areas of fibroglandular density Breast density Category C or D implies that the patient has dense breast tissue. Dense breast tissue can make it harder to find cancer on a mammogram. Dense breast tissue is also associated with an incr eased risk of breast cancer. This information about the result of the mammogram report was provided to the patient to raise their awareness. Use this report when you speak with the patient about their risks for breast cancer, which includes their family history. At that time, you may recommend additional screening tests (Ultrasoun d or MRI) as these tests may add significant information. A negative radiographic report should not delay biopsy if a dominant or clinically suspicious mass is present. Up to ten percent of cancers are not identified on mammography. A negative report may reinforce clinical impression. Adenosis and dense breasts may obscure an underlying neoplasm. False positive reports average 6 to 10%. Patient will receive a letter notifying them of these results.
== END 2022-07-14 02:08 ==
LOC: DI 01:48
PROVIDERS: PCP Family Medicine; Visit Provider Family Medicine
DX: Z12.31 Encounter for screening mammogram for malignant neoplasm of breast (principal)
CPT/HCPCS: 77063; 77067

== ENCOUNTER 2022-07-21 20:16 | Emergency (ER) | payer MEDICAID, SELFPAY ==
--- NOTE | 2022-07-21 20:15 | RT.EKG_ITS ---
APPROVED REPORT Exam: Resting ECG Reason for Exam: chest pain Patient Location: E HR:77 bpm ECG Measurements Heart Rate 77 AXIS UT 175 P 61 QRSd 94 QRS 73 QT 375 T 32 QTc 426 Conclusion Sinus rhythm...normal P axis, V-rate 60- 99 Probable left atrial enlargement...P >50mS, <-0.10mV V1 Physician: no stemi
[2022-07-21 20:20] VITALS: BP 135/93; PULSE 82; RESP 20; TEMP 36.4
[2022-07-21 20:37] LABS: Abs Immature Grans 0.02 10^3/uL (0.0-0.06); Absolute Basophil Count 0.06 10^3/uL (0.0-0.2); Absolute Eosinophil Count 0.21 10^3/uL (0.0-0.7); Absolute Lymphocyte Count 3.79 10^3/uL (1.2-3.4); Absolute Monocyte Count 0.73 10^3/uL (0.1-0.8); Absolute Neutrophil Count 5.25 10^3/uL (1.2-6.7); Basophils % 0.6; Eosinophils % 2.1; HCT 39.4 % (36.0-46.0); Immature Grans % 0.2; Lymphocytes % 37.7; MCH 29.1 pg (27.0-33.0); MCV 88 fL (80-95); MPV 9.9 fL (8.0-11.0); Monocytes % 7.3; Neutrophils % 52.1; Platelet Count 315 10^3/uL (130-400); RBC 4.46 10^6/uL (3.93-5.22); RDW 12.9 % (11.7-14.6); RDW-SD 41.1 fL; WBC 10.06 10^3/uL (4.4-10.8)
[2022-07-21] MEDS: Aspirin 81 MG CHEW 324 MG CH (20:39)
[2022-07-21 20:48] LABS: INR 0.9 (0.9-1.1); PTT Activated 23.3 sec (21.5-31.9); Prothrombin Time 9.2 sec (9.3-11.0)
--- NOTE | 2022-07-21 20:51 | W.ED.GENAD ---
Discharge Plan Disposition Patient Disposition: Home Condition: Good Discharge Details Clinical Impression: Chest discomfort Primary Care Provider: Ana Blake ED Provider: Ortiz Clark Home Meds and New Rx's Prescriptions: Continued moxifloxacin 400 mg Tablet 400 mg PO DAILY nicotine [Nicoderm CQ] 21 mg/24 hr Patch 24 Hour 1 patch transdermal DAILY albuterol sulfate 90 mcg/actuation Hfa Aerosol Inhaler 2 puff INHALATION Q4-5H PRN amoxicillin-pot clavulanate 875-125 mg tablet 1 tab PO BID Qty: 14 0RF Discharge Instructions Instructions: Chest Pain (ED) Additional Instructions: At this time your CAT scan, your cardiac work-up, and your EKG showed no significant abnormalities suggestive of a life-threatening etiology. As we discussed please avoid any spicy foods. Please follow-up closely with your surgeon. If you notice any worsening of your symptoms, or any new symptoms such as vomiting, diarrhea, fever, chills, shortness of breath, chest pain, numbness, weakness, or fainting , please return immediately to the emergency department for reevaluation. Please follow up with your primary care provider as soon as possible for reassessment and reevaluation. As always, it was a pleasure participating in your medical care today. Referrals: Ana Blake [Primary Care Provider] - Medical Decision Making 66-year-old female with a past medical history of tobacco abuse, reactive airway disease, presents today for chest pain. Patient states that at 7 PM she developed a burning chest pain, as well as a right sided back and chest achiness. The right sided component comes and goes in severity. It is sharp and achy. It is nonpleuritic. She denies any associated shortness of breath. She denies any recent exertional dyspnea. She denies any history of cardiac disease. She states that she had Lisette fundoplication in the past which resolved her reflux that she had before, and this is the first time that she has had burning pain in years. She denies any arm neck or shoulder discomfort. She denies any tearing or ripping sensation. She did not eat anything for dinner. She denies any recent spicy foods. She denies any other complaints at this time. Physical exam demonstrates a well-appearing female, vital signs stable. Differential includes gallbladder pathology, PE, cardiac etiology or just reflux. We will evaluate for these concerning etiologies, monitor closely and reassess. 10 PM Laboratory work-up has returned normal, patient's symptoms notably improved after GI cocktail. Achiness is also improved. D-dimer is normal, symptoms unlikely for PE. Electrolytes stable, renal function stable. Troponin and repeat troponin are both normal. EKG shows no evidence of STEMI. CT scan demonstrates no evidence of significant acute process, there is hepatomegaly, and the presence of her Lisette fundoplication without complication. At this time I did discuss continued observation, studies, versus discharge and patient is requesting discharge at this time. Patient will be discharged with recommendation for close follow-up with her surgeon on an outpatient nonemergent basis. Symptoms otherwise at this time are inconsistent with dissection, PE, ACS. FINDINGS: Thyroid: The visualized thyroid gland is unremarkable. Lungs: No acute tracheobronchial abnormalities. No infiltrates or edema. Mild atelectasis in the lung bases.Mild bilateral apical pleural/parenchymal scarring. No pulmonary mass lesions are identified. Pleural spaces: No pleural effusions. No pneumothorax. Heart: Heart size normal. Mediastinal space: Small partially aerated 12 mm chronic pulsion diverticulum along the anterior margin of the distal esophagus unchanged back to 2018. Prior Lisette fundoplication again noted without gross complication. Lymph nodes: No supraclavicular or axillary adenopathy. No mediastinal or hilar adenopathy. Vasculature: Mild aortic ectasia/tortuosity and calcific atherosclerosis. No mediastinal hematoma. The pulmonary arteries demonstrate no gross abnormality. Bones/joints: No acute osseous abnormalities are identified. Mild thoracic spondylosis. Soft tissues: Soft tissues of the thoracic wall demonstrate no acute abnormality. IMPRESSION: 1. No acute thoracic process is identified. 2. Nonemergent findings detailed above. FINDINGS: Liver: Chronic hepatomegaly versus variant Meghan's lobe configuration unchanged, measuring 21 cm craniocaudal. Well-circumscribed low-density hepatic lesions demonstrating benign CT features consistent with hepatic cysts. No further imaging evaluation is required based on current consensus criteria. Granulomatous calcifications in the liver. No solid mass lesions. No intrahepatic biliary ductal dilatation. Gallbladder and bile ducts: The gallbladder is partially contracted but otherwise unremarkable. Nondilated common bile duct. Pancreas: Chronic 7 mm fat density focus in the pancreatic body is unchanged back to 2018 consistent with incidental fatty interdigitation or a small lipoma which does not require further assessment. No acute pancreatic abnormalities. No changes of pancreatitis. No ductal dilatation. Spleen: Normal. No splenomegaly. Adrenal glands: Small bilateral adrenal adenomas measuring up to 10 mm short axis on each side and measuring around -10 Hounsfield units each. Kidneys and ureters: No acute abnormalities. No hydronephrosis or hydroureter. No urinary tract stones are identified. There are bilateral renal cortical lesions demonstrating low density values and circumscribed margins favoring simple renal cysts for which no further imaging evaluation is required. Stomach and bowel: Prior Lisette fundoplication noted without gross complication. The stomach is largely contracted without acute abnormality. Visualized upper abdominal small bowel is unremarkable. Visualized upper abdominal colonic segments demonstrate no acute abnormality, with moderate distal colonic diverticulosis but no changes of diverticulitis within the scan range. Intraperitoneal space: No free fluid or air. Vasculature: No acute process. No abdominal aortic aneurysm. Moderate calcific atherosclerosis. Lymph nodes: No adenopathy. Bones/joints: No acute osseous abnormalities. Soft tissues: Small fatty umbilical hernia . No evidence of associated bowel herniation or strangulation. IMPRESSION: 1. No definite intra-abdominal process is evident. 2. Chronic hepatomegaly versus variant Meghan's lobe configuration measuring 21 cm craniocaudal. 3. Prior Lisette fundoplication without gross complication or change. 4. Hepatic and renal cysts. 5. Mild distal colonic diverticulosis with no evidence of diverticulitis within the scan range. 6. Additional nonemergent findings detailed above. Thank you for allowing us to participate in the care of your patient. Dictated and Authenticated by: Matias Maddox MD 07/21/2022 10:36 PM Eastern Time ([place] & [place]) HPI General Date/Time Provider Initiated Documentation: 07/21/22 20:25. HPI Narrative: 66-year-old female with a past medical history of tobacco abuse, reactive airway disease, presents today for chest pain. Patient states that at 7 PM she developed a burning chest pain, as well as a right sided back and chest achiness. The right sided component comes and goes in severity. It is sharp and achy. It is nonpleuritic. She denies any associated shortness of breath. She denies any recent exertional dyspnea. She denies any history of cardiac disease. She states that she had Lisette fundoplication in the past which resolved her reflux that she had before, and this is the first time that she has had burning pain in years. She denies any arm neck or shoulder discomfort. She denies any tearing or ripping sensation. She did not eat anything for dinner. She denies any recent spicy foods. She denies any other complaints at this time. Related Data Home Medications Medication Instructions Recorded Confirmed albuterol sulfate 90 mcg/actuation 2 puff inhalation Q4-5H PRN 06/21/22 06/21/22 aerosol inhaler amoxicillin 875 mg-potassium 1 tab PO BID #14 tabs 06/21/22 clavulanate 125 mg tablet moxifloxacin 400 mg tablet 400 mg PO DAILY 06/21/22 06/21/22 nicotine 21 mg/24 hr daily 1 patch transdermal DAILY 06/21/22 06/21/22 transdermal patch (Nicoderm CQ) Previous Rx's Medication Instructions Recorded amoxicillin 875 mg-potassium 1 tab PO BID #14 tabs 06/21/22 clavulanate 125 mg tablet Allergies Allergy/AdvReac Type Severity Reaction Status Date / Time baclofen Allergy Severe Unverified 06/21/22 09:02 doxycycline Allergy Severe Unverified 06/21/22 09:02 bupropion [From Zyban] Allergy Mild Unverified 06/21/22 09:02 ciprofloxacin Allergy Verified 07/25/21 20:50 metronidazole Allergy Verified 07/25/21 20:50 Sulfa (Sulfonamide Allergy Verified 07/25/21 20:50 Antibiotics) General Stated Complaint: Chest Pain TOM: 3 Review of Systems All systems reviewed & are unremarkable except as noted in HPI and below PFSH All Active Problems (Updated 07/22/22 @ 00:05 by FRANCISCO ROBERT) Acute viral syndrome (Acute) Chest discomfort (Acute) Social History Smoking/Tobacco Use Status: Current every day Tobacco Type: cigarettes Smoking risk assessment performed?: Yes Alcohol Intake: never Drug use: Never Substance use type: does not use Do you feel safe at home: Yes Do you feel safe in your relationship?: Yes Exam Narrative Exam Narrative: 1.Const: Well-nourished, Well-developed, appearing stated age 2.Eyes: PERRL, no conjunctival injection, and symmetrical lids. 3.ENT: Atraumatic external nose and ears. Moist MM. Neck: Symmetric, trachea midline, No thyromegaly. 4.CVS: +S1/S2, No murmurs or gallops. Peripheral pulses 2+ and equal in all extremities. Brisk capillary refill in all extremities. 5.RESP: Unlabored respiratory effort. Clear to auscultation bilaterally. No wheezes rales or rhonchi 6.GI: Soft, Nontender/Nondistended, No hepatosplenomegaly. No guarding or rebound. 7.MSK: Normocephalic/Atraumatic, Extremities w/o deformity or ttp No cyanosis or clubbing, Normal movement of all extremities 8.Skin: Warm, Dry. No rashes or lesions. 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 Sensation grossly intact, no focal neurologic deficits. 10.Psych: (AAO) x3. Appropriate mood and affect Course Vital Signs Vital signs: Vital Signs Temperature 36.4 C L 07/21/22 20:20 Pulse 82 07/21/22 20:20 Respiratory Rate 20 07/21/22 20:20 Blood Pressure 135/93 H 07/21/22 20:20 Temperature 36.4 C L 07/21/22 20:20 Pulse 82 07/21/22 20:20 Respiratory Rate 20 07/21/22 20:20 Respiratory Effort Normal, Non-Labored 07/21/22 20:26 Blood Pressure 135/93 H 07/21/22 20:20 Blood Pressure Position Sitting 07/21/22 20:20 Oxygen Delivery Method Room Air 07/21/22 20:20 Oxygen Flow Rate 0 07/21/22 20:20 Lab/Test Results Lab/Test Results: Laboratory Tests Range/Units 07/21/22 07/21/22 20:30 20:30 WBC (4.4-10.8) 10^3/uL 10.06 RBC (3.93-5.22) 10^6/uL 4.46 Hgb (11.2-15.7) g/dL 13.0 Hct (36.0-46.0) % 39.4 MCV (80-95) fL 88 MCH (27.0-33.0) pg 29.1 MCHC (32.0-36.0) % 33.0 RDW (11.7-14.6) % 12.9 Plt Count (130-400) 10^3/uL 315 MPV (8.0-11.0) fL 9.9 Immature Gran % 0.2 Neutrophils % 52.1 Lymphocytes % 37.7 Monocytes % 7.3 Eosinophils % 2.1 Basophils % 0.6 Nucleated RBC % (0.0-0.3) % 0.0 Absolute Neutrophils (1.2-6.7) 10^3/uL 5.25 Absolute Lymphocytes (1.2-3.4) 10^3/uL 3.79 H Absolute Monocytes (0.1-0.8) 10^3/uL 0.73 Absolute Eosinophils (0.0-0.7) 10^3/uL 0.21 Absolute Basophils (0.0-0.2) 10^3/uL 0.06 PT (9.3-11.0) sec 9.2 L INR (0.9-1.1) 0.9 APTT (21.5-31.9) sec 23.3
[2022-07-21 21:01] LABS: ALT 21 U/L (14-59); AST 13 U/L (15-37); Albumin 3.7 g/dL (3.4-5.0); Alkaline Phosphatase 77 U/L (46-116); Anion Gap 8.1 mmol/L (3-11); BUN 21 mg/dL (7-18); Bilirubin, Total 0.1 mg/dL (0.2-1.0); CO2 26.9 mmol/L (21.0-32.0); CREATININE 1.2 mg/dL (0.55-1.02); Calcium 9.7 mg/dL (8.5-10.1); Chloride 104 mmol/L (98-107); Estimated GFR 50.55 (mL/min/1.73m2); Glucose 123 mg/dL (74-106); Lipase 30 U/L (16-77); NT-proBNP 91 pg/mL (<300); Potassium 3.9 mmol/L (3.5-5.1); Sodium 139 mmol/L (136-145); Total Protein 7.9 g/dL (6.4-8.2); Troponin I < 50 ng/L (<or=60)
[2022-07-21 21:20] LABS: D-Dimer 420 ng/mlFEU (<500)
--- NOTE | 2022-07-21 21:24 | DI.CT_ITS ---
Exam(s) CT CHEST/ABD WO EXAM: CT CHEST/ABD WO CLINICAL HISTORY: right chest and RUQ abd pain. TECHNIQUE: Imaging protocol: Axial computed tomography images were obtained and coronal and sagittal reformatted images were created and reviewed. CONTRAST MATERIAL: Noncontrast, patient states IV contrast reaction causing vomiting and headaches COMPARISON: CT CT ABDOMEN PELVIS WO from 06/21/2022 FINDINGS: Pulmonary parenchyma: No consolidation. Apical scarring. Emphysema: Mild centrilobular and paraseptal emphysema greater upper lobes. Tracheobronchial tree: No mucous plugging. No bronchiectasis . Interstitial changes: Minimally increased interstitial changes peripherally. Pleura: No effusion or pneumothorax. Heart: The heart is mildly dilated. The coronary arteries show mildcalcifications. Aorta: Thoracic aorta non-dilated. Mildatherosclerotic changes. Lymph nodes: No enlarged lymph nodes. Bones: Mild degenerative changes are seen. No evidence of compression fracture. Upper abdomen: Innumerable hepatic cysts, stable. Bilateral renal cysts. Stable tiny adrenal nodul es. No further follow-up recommended.. Prior Lisette fundoplication. Small diverticulum distal eso phagus. Small amount of fat at the umbilicus. Diverticulosis noted did descending colon. No eviden ce of diverticulitis. IMPRESSION: No acute abnormality. RADIATION DOSE DELIVERED: 787.86mGy.cm Total DLP DATA REPOSITORY: All CT scans at this facility are submitted to the National Radiology Data Registry (NRDR) Dose Index Registry (DIR) with the [employer] ([employer]). RADIATION OPTIMIZATION: All CT scans at this facility use at least one of these dose optimization te chniques: automated exposure control; mA and/or kV adjustment per patient size (includes targeted exa ms where dose is matched to clinical indication); or iterative reconstruction.
--- NOTE | 2022-07-21 22:37 | DI.VRAD_ITS ---
PROCEDURE INFORMATION: Exam: CT Chest Without Contrast; Diagnostic Exam date and time: 07/21/2022 9:42 PM Age: 66 years old Clinical indication: Abdominal pain; Localized; Right upper quadrant (ruq); Right-sided; Prior surgery; Surgery date: 6+ months; Surgery type: Lisette procedure; Patient HX: Right sided chest pain, pain between shoulder blades, ruq pain, heartburn TECHNIQUE: Imaging protocol: Diagnostic computed tomography of the chest without contrast. Radiation optimization: All CT scans at this facility use at least one of these dose optimization techniques: automated exposure control; mA and/or kV adjustment per patient size (includes targeted exams where dose is matched to clinical indication); or iterative reconstruction. COMPARISON: CT ABDOMEN PELVIS WO 06/21/2022 9:16 AM FINDINGS: Thyroid: The visualized thyroid gland is unremarkable. Lungs: No acute tracheobronchial abnormalities. No infiltrates or edema. Mild atelectasis in the lung bases.Mild bilateral apical pleural/parenchymal scarring. No pulmonary mass lesions are identified. Pleural spaces: No pleural effusions. No pneumothorax. Heart: Heart size normal. Mediastinal space: Small partially aerated 12 mm chronic pulsion diverticulum along the anterior margin of the distal esophagus unchanged back to 2018. Prior Lisette fundoplication again noted without gross complication. Lymph nodes: No supraclavicular or axillary adenopathy. No mediastinal or hilar adenopathy. Vasculature: Mild aortic ectasia/tortuosity and calcific atherosclerosis. No mediastinal hematoma. The pulmonary arteries demonstrate no gross abnormality. Bones/joints: No acute osseous abnormalities are identified. Mild thoracic spondylosis. Soft tissues: Soft tissues of the thoracic wall demonstrate no acute abnormality. IMPRESSION: 1. No acute thoracic process is identified. 2. Nonemergent findings detailed above. PROCEDURE INFORMATION: Exam: CT Abdomen Without Contrast Exam date and time: 07/21/2022 9:42 PM Age: 66 years old Clinical indication: Abdominal pain; Localized; Right upper quadrant (ruq); Right-sided; Prior surgery; Surgery date: 6+ months; Surgery type: Lisette procedure; Patient HX: Right sided chest pain, pain between shoulder blades, ruq pain, heartburn TECHNIQUE: Imaging protocol: Computed tomography of the abdomen without contrast. Radiation optimization: All CT scans at this facility use at least one of these dose optimization techniques: automated exposure control; mA and/or kV adjustment per patient size (includes targeted exams where dose is matched to clinical indication); or iterative reconstruction. COMPARISON: CT ABDOMEN PELVIS WO 06/21/2022 9:16 AM FINDINGS: Liver: Chronic hepatomegaly versus variant Meghan's lobe configuration unchanged, measuring 21 cm craniocaudal. Well-circumscribed low-density hepatic lesions demonstrating benign CT features consistent with hepatic cysts. No further imaging evaluation is required based on current consensus criteria. Granulomatous calcifications in the liver. No solid mass lesions. No intrahepatic biliary ductal dilatation. Gallbladder and bile ducts: The gallbladder is partially contracted but otherwise unremarkable. Nondilated common bile duct. Pancreas: Chronic 7 mm fat density focus in the pancreatic body is unchanged back to 2018 consistent with incidental fatty interdigitation or a small lipoma which does not require further assessment. No acute pancreatic abnormalities. No changes of pancreatitis. No ductal dilatation. Spleen: Normal. No splenomegaly. Adrenal glands: Small bilateral adrenal adenomas measuring up to 10 mm short axis on each side and measuring around -10 Hounsfield units each. Kidneys and ureters: No acute abnormalities. No hydronephrosis or hydroureter. No urinary tract stones are identified. There are bilateral renal cortical lesions demonstrating low density values and circumscribed margins favoring simple renal cysts for which no further imaging evaluation is required. Stomach and bowel: Prior Lisette fundoplication noted without gross complication. The stomach is largely contracted without acute abnormality. Visualized upper abdominal small bowel is unremarkable. Visualized upper abdominal colonic segments demonstrate no acute abnormality, with moderate distal colonic diverticulosis but no changes of diverticulitis within the scan range. Intraperitoneal space: No free fluid or air. Vasculature: No acute process. No abdominal aortic aneurysm. Moderate calcific atherosclerosis. Lymph nodes: No adenopathy. Bones/joints: No acute osseous abnormalities. Soft tissues: Small fatty umbilical hernia . No evidence of associated bowel herniation or strangulation. IMPRESSION: 1. No definite intra-abdominal process is evident. 2. Chronic hepatomegaly versus variant Meghan's lobe configuration measuring 21 cm craniocaudal. 3. Prior Lisette fundoplication without gross complication or change. 4. Hepatic and renal cysts. 5. Mild distal colonic diverticulosis with no evidence of diverticulitis within the scan range. 6. Additional nonemergent findings detailed above. Dictated and Authenticated by: Matias Maddox MD. Ordering:BARTOLO Alcantar MD
[2022-07-21 22:58] VITALS: BP 123/87; PULSE 69; RESP 16; O2SAT 96
[2022-07-21 23:30] LABS: Troponin I < 50 ng/L (<or=60)
[2022-07-21 23:45] VITALS: BP 111/68; PULSE 68; RESP 20; TEMP 37.1; O2SAT 98
--- NOTE | 2022-07-23 08:09 | NUR.NOTE ---
Nursing Note: Accessed chart to determine orders for EKG. EKG needs a read.
== END 2022-07-22 01:20 | disposition home or self-care (01) ==
PROVIDERS: Emergency Provider Student in an Organized Health Care Education/Training Program; PCP Family Medicine
DX: R07.89 Other chest pain (principal); R16.0 Hepatomegaly, not elsewhere classified
CPT/HCPCS: 36415; 71250; 74150; 80053; 83690; 93005; 99284; 83880; 84484; 85025; 85379; 85610; 85730; 93010; 99283

== ENCOUNTER 2022-08-05 02:01 | Outpatient (CLI) | payer MEDICAID, SELFPAY ==
--- NOTE | 2022-08-05 12:15 | DI.US_ITS ---
Exam(s) US ABDOMEN LIMITED EXAM: US ABDOMEN LIMITED CLINICAL HISTORY: ABD PAIN, R10.9 TECHNIQUE: Ultrasound abdomen performed using standard protocol. CT CT ABDOMEN PELVIS WO from 06/21/[address] CHEST/ABD WO from 07/21/2022 FINDINGS: PANCREAS: Normal where visualized. LIVER: There again seen multiple hepatic cysts. The largest is in the left lobe and measures 3.3 x 2 .1 x 3.4 cm. Hepatopedal flow in the Portal Vein. The liver measures in 19.4 cm length. GALLBLADDER: No evidence of cholelithiasis. No evidence of wall thickening. No pericholecystic fluid identified. BILIARY SYSTEM: Common bile duct measures < 7 mm. No intrahepatic biliary ductal dilation. MATTHEW'S SIGN: Negative. RIGHT KIDNEY: Kidney is normal in size. No evidence of renal calculi. No evidence of hydronephrosis. There is a 5.3 x 4.0 x 5 cm simple cyst in the inferior pole of the right kidney. This is unchanged . No follow-up is recommended. ASCITES: None seen. IMPRESSION: 1. Mild hepatomegaly. Stable hepatic cysts. 2. Stable right renal cyst. DATA REPOSITORY:
== END 2022-08-05 02:21 ==
LOC: DI 02:01
PROVIDERS: PCP Family Medicine; Visit Provider Family Medicine
DX: R10.9 Unspecified abdominal pain (principal); K76.89 Other specified diseases of liver; N28.1 Cyst of kidney, acquired; R16.0 Hepatomegaly, not elsewhere classified
CPT/HCPCS: 76705

== ENCOUNTER 2022-09-25 13:50 | Outpatient (REF) | payer MEDICAID, SELFPAY ==
--- NOTE | 2022-09-25 09:00 | PAPFT_PTH ---
PATIENT: Winter Thomas LOC: [facility]#:[id number] AGE/SX: 66/F ROOM: RE09/25/[address]: Ana Blake : 1955 BED: DIS: 09/25/2022 SPEC #: [id number] RECD: 09/25/22 15:49 STATUS: JEEVAN RETasha #: [id number] GIDEON: 09/25/22 09:[address]: Ana Blake DEPT: [facility] Cytology RECD BY: [place]ia Estrada Tissues: 1 - CX/ENDOCX FOR PAP SMEARS Procedures: PAP THIN PREP/UVM Screening HPV DNA PROBE Comments: [id number]
== END 2022-09-25 13:51 | disposition home or self-care (01) ==
LOC: NCHCN 13:50
PROVIDERS: PCP Family Medicine; Visit Provider Family Medicine
DX: Z12.4 Encounter for screening for malignant neoplasm of cervix (principal); Z11.51 Encounter for screening for human papillomavirus (HPV)
CPT/HCPCS: 88142; 87624

== ENCOUNTER 2022-10-06 09:53 | Day surgery (SDC) | payer MEDICAID, SELFPAY ==
--- NOTE | 2022-10-05 19:55 | W.PM.HP.N ---
Date of service: 10/06/22 Time of Service: 11:54 Assessment and Plan Assessment and plan (1) Epigastric pain: Status: Acute (2) Abdominal pain: Status: Acute Assessment and plan: Plan: Colonoscopy & EGD w/ general & natural airway. The?patient will be scheduled by my office. A complete H & P is required within 30 days of the procedure.? GETA w/natural airway is used for the colonoscopy.? Informed consent is obtained for the procedural (explained in simple layman's terms that?the pt and/or family could understand) explaining risks vs benefits and alternatives to the procedure and consequences if we do not do the procedure and need/rational for the procedure. Risks include but are not limited to: bleeding, infection, perforation of colon.? This would necessitate emergency surgery to repair the damage w/ possible ostomy; and other associated complications w/ the required surgery. ? Also complications of anesthesia including aspiration, IA/CVA/, inability to complete the procedure. I discussed with the?patient would they could expect during the procedure, post procedure and recovery time and risks.? The patient understands that they need to have a ride home after the procedure.? The patient was given all this information in writing and expressed understanding. If there are any questions or concerns please feel free to contact our office.? Generally Colonoscopy does not require antibiotics prophylaxis, (3) Smoker: Status: Acute (4) Hiatal hernia: Status: Chronic (5) Diverticula of colon: Status: Acute (6) Non-cardiac chest pain: Status: Acute (7) History of Lisette fundoplication: History of Present Illness Narrative: today: Patient is here today for colonoscopy & egd for reflux & diverticulitis.??? They completed a bowel prep with just a clear brownish residual effluent.? They not having any chest pain or shortness of breath, currently.? They are not experiencing any fever or chills.? They deny any productive cough or upper respiratory tract infection signs or symptoms.? They are not having abdominal pain, or nausea and vomiting.? They have not had any changes in medications, past medical history or past surgical history since previously being seen in the office. They have not had any accidents or have been in the ER since the clinic pre-operative evaluation. ??I reviewed the procedure with the patient today, including risks and benefits of the procedure, and what they could expect at home for recovery.? All questions are answered to the patient?s satisfaction today, and they are stable to proceed with the proposed procedure. She will occasionally have some episgatric burning. But nothing like it was when she she in the ER. We are not going to do a hemorrhoid banding today. clinic visiti Patient was recently in the ER on 07/21 with chest pain.? Cardiac work-up was negative.? She did have relief with GI cocktail.? She had an ultrasound on 08/05 that was negative for gallbladder disease she has a history of a Lisette fundoplication.? She is also due for a colonoscopy. Patient states she was lying down when the chest pain started.? She denies any strenuous activity or unusual activity prior to its onset.? At the same time as the chest pain, she was also having her a flare of her diverticulitis.? She had just finished 1 course of antibiotics for diverticulitis.? I believe this was moxifloxicin.? Her PCP thought that the diverticulitis was incompletely treated and it started her on Augmentin.? Whenever she gets diverticulitis she does not get pain in the left lower quadrant.? Rather she gets chest pain.? Today she has no pain in the left lower quadrant or chest pain.? She has no fever or chills.? She has no nausea vomiting.? She has not been experiencing diarrhea from the antibiotics.? She CT 06/21/22 MPRESSION: Findings of acute diverticulitis involving the proximal sigmoid colon.? No abscess or free air.? CT 07/21/22 Upper abdomen:? Innumerable hepatic cysts, stable.? Bilateral renal cysts.? Stable tiny adrenal nodules. ? No further follow-up recommended..? Prior Lisette fundoplication.? Small diverticulum distal esophagus.? Small amount of fat at the umbilicus.? Diverticulosis noted did descending colon.? No evidence of diverticulitis. ?Pt has? had colon cancer screening before in 2010 that was significant for diverticular disease.? They denies problems with constipation or diarrhea.? They deny any pain or difficulty with bowel movements, or rectal bleeding.? There is no family history of any colon cancer.? Pt has not had any unexplained weight loss.? Their appetite is good.? ?They deny heart, lung, or kidney problems. They are not having heartburn or indigestion.? She has had a Lisette.? She is not currently on any stomach medication.? They have not had any prior colo-rectal surgery.? The patient? has not had a prior DIETER.? They deny any problems with anesthesia in the past.? She recently got 2 new puppies and has been busy taking care of them, and has experienced some mild weight loss.? Patient states she moves her bowels once a day in the AM. She has had a Lisette fundoplication in the past.? She denies any problems of heartburn or indigestion.? She denies any pain or difficulty swallowing.? There is a hiatal hernia noted on her CT. distress and cooperation who is patient notes that her trigger for causing the diverticulitis is chips.? Every time she eats chips she lines up with diverticulitis.? She also has a history of hemorrhoids.? They started after the of her third child.? They are on the outside of the rectum.? She denies any straining to move her bowels. Coffee-none Soda-stopped Tea-decaf only Coffee milk+ She denies daily use of aspirin or NSAIDs Anesthesia: general (without airway) Previous surgical intolerances: No Previous surgical complications: No Pulmonary risk factors: Planned procedure: Yes Sleep apnea risks: No COPD/Asthma/Smoker: Smoker Can climb one flight of stairs (12-13 steps) in less than 30 seconds without stopping and without symptoms: Yes The surgery proposed for this patient is: low risk Active cardiac conditions: none Active risk factors: none ASA (acetylsalicylic acid): not used Beta blockers: not used Kidneys: no concerns DM:no ER Notes 07/21/22 66-year-old female with a past medical history of tobacco abuse, reactive airway disease, presents today for chest pain.? Patient states that at 7 PM she developed a burning chest pain, as well as a right sided back and chest achiness.? The right sided component comes and goes in severity.? It is sharp and achy.? It is nonpleuritic.? She denies any associated shortness of breath.? She denies any recent exertional dyspnea.? She denies any history of cardiac disease.? She states that she had Lisette fundoplication in the past which resolved her reflux that she had before, and this is the first time that she has had burning pain in years.? She denies any arm neck or shoulder discomfort.? She denies any tearing or ripping sensation.? She did not eat anything for dinner.? She denies any recent spicy foods.? She denies any other complaints at this time. Laboratory work-up has returned normal, patient's symptoms notably improved after GI cocktail.? Achiness is also improved.? D-dimer is normal, symptoms unlikely for PE.? Electrolytes stable, renal function stable.? Troponin and repeat troponin are both normal.? EKG shows no evidence of STEMI.? CT scan demonstrates no evidence of significant acute process, there is hepatomegaly, and the presence of her Lisette fundoplication without complication.? At this time I did discuss continued observation, studies, versus discharge and patient is requesting discharge at this time.? Patient will be discharged with recommendation for close follow-up with her surgeon on an outpatient nonemergent basis.? Symptoms otherwise at this time are inconsistent with dissection, PE, ACS. ? CE 11/24 significant for diverticular Dx; and that it was difficult to maneuver through her sigmoid colon. Review of Systems All systems reviewed & are unremarkable except as noted in HPI and below PFSH All Active Problems Acute viral syndrome (Acute) Epigastric pain (Acute) Abdominal pain (Acute) Smoker (Acute) Seasonal allergies (Acute) Hiatal hernia (Chronic) Diverticula of colon (Acute) Non-cardiac chest pain (Acute) Surgical History History of Lisette fundoplication Hx of tubal ligation Social History Smoking/Tobacco Use Status: Current every day Tobacco Type: cigarettes Smoking risk assessment performed?: Yes Alcohol Intake: never Drug use: Never Substance use type: does not use Details: tobacco use at 0900 this am, 10/06/22 Do you feel safe at home: Yes Do you feel safe in your relationship?: Yes Meds Allergies and Home Medications Allergies Allergy/AdvReac Type Severity Reaction Status Date / Time baclofen Allergy Severe Other (See Unverified 10/06/22 10:25 Comment) doxycycline Allergy Severe Other (See Unverified 10/06/22 10:25 Comment) bupropion [From Zyban] Allergy Mild Other (See Unverified 10/06/22 10:25 Comment) metronidazole Allergy Verified 10/06/22 10:25 Sulfa (Sulfonamide Allergy Verified 10/06/22 10:25 Antibiotics) Home Medications Medication Instructions Recorded Confirmed Type albuterol sulfate 90 mcg/actuation 2 puff inhalation Q4-5H PRN 06/21/22 10/06/22 History aerosol inhaler Exam Narrative Exam Narrative: PHYSICAL EXAM GENERAL APPEARANCE: Alert, healthy appearance, oriented, x 3,? in no acute distress HEAD, EYES, EARS, NECK, THROAT: Head is normocephalic, pupils equal, round, reactive to light and accommodation, ocular movement intact, sclera clear and no jaundice. ? LUNGS: normal respiration/normal chest excursion. ?Clear to auscultation bilaterally. ?No wheeze. ?HEART: Regular rate and rhythm. no murmurs ABDOMEN: soft and non-tender to palpation.? Normal bowel sounds.? Anemia profile Hgb 13.0 g/dL (11.2-15.7) 07/21/22 Hct 39.4 % (36.0-46.0) 07/21/22 MCV 88 fL (80-95) 07/21/22 RDW 12.9 % (11.7-14.6) 07/21/22 Basic Metabolic Sodium 139 mmol/L (136-145) 07/21/22 Potassium 3.9 mmol/L (3.5-5.1) 07/21/22 Chloride 104 mmol/L (98-107) 07/21/22 Carbon Dioxide 26.9 mmol/L (21.0-32.0) 07/21/22 BUN 21 mg/dL (7-18) H 07/21/22 Creatinine 1.2 mg/dL (0.55-1.02) H 07/21/22 Estimated GFR/1.73 m2 50.17 (mL/min/1.73m2) 07/25/21 Glucose 123 mg/dL (74-106) H 07/21/22 CBC White Blood Count 10.06 10^3/uL (4.4-10.8) 07/21/22 Red Blood Count 4.46 10^6/uL (3.93-5.22) 07/21/22 Hemoglobin 13.0 g/dL (11.2-15.7) 07/21/22 Hematocrit 39.4 % (36.0-46.0) 07/21/22 Mean Corpuscular Volume 88 fL (80-95) 07/21/22 Mean Corpuscular Hemoglobin 29.1 pg (27.0-33.0) 07/21/22 Mean Corpuscular Hemoglobin Concent 33.0 % (32.0-36.0) 07/21/22 Red Cell Distribution Width 12.9 % (11.7-14.6) 07/21/22 Platelet Count 315 10^3/uL (130-400) 07/21/22 Mean Platelet Volume 9.9 fL (8.0-11.0) 07/21/22 Neutrophils % 52.1 07/21/22 Lymphocytes % 37.7 07/21/22 Monocytes % 7.3 07/21/22 Eosinophils % 2.1 07/21/22 Basophils % 0.6 07/21/22 Immature Granulocytes % 0.2 07/21/22 Comprehensive Metabolic Panel Sodium 139 mmol/L (136-145) 07/21/22 20:30 Potassium 3.9 mmol/L (3.5-5.1) 07/21/22 20:30 Chloride 104 mmol/L (98-107) 07/21/22 20:30 Carbon Dioxide 26.9 mmol/L (21.0-32.0) 07/21/22 20:30 BUN 21 mg/dL (7-18) H 07/21/22 20:30 Creatinine 1.2 mg/dL (0.55-1.02) H 07/21/22 20:30 Estimated GFR/1.73 m2 50.17 (mL/min/1.73m2) 07/25/21 20:55 Glucose 123 mg/dL (74-106) H 07/21/22 20:30 Calcium 9.7 mg/dL (8.5-10.1) 07/21/22 20:30 Conjugated Bilirubin < 0.05 mg/dL (0.00-0.20) 04/05/17 12:35 Total Bilirubin 0.1 mg/dL (0.2-1.0) L 07/21/22 20:30 ALT 21 U/L (14-59) 07/21/22 20:30 AST 13 U/L (15-37) L 07/21/22 20:30 Alkaline Phosphatase 77 U/L (46-116) 07/21/22 20:30 Total Protein 7.9 g/dL (6.4-8.2) 07/21/22 20:30 Albumin 3.7 g/dL (3.4-5.0) 07/21/22 20:30 Diabetes results Glucose 123 mg/dL (74-106) H 07/21/22 LDL Cholesterol Direct 181 mg/dL 10/17/14 HDL Cholesterol 53 mg/dL (40-60) 10/17/14 Triglycerides 112 mg/dL (15-150) 10/17/14 BUN 21 mg/dL (7-18) H 07/21/22 Creatinine 1.2 mg/dL (0.55-1.02) H 07/21/22 Estimated GFR/1.73 m2 50.17 (mL/min/1.73m2) 07/25/21 Est GFR (CKD-EPI 2020) 50.55 (mL/min/1.73m2) 07/21/22 Sodium 139 mmol/L (136-145) 07/21/22 Potassium 3.9 mmol/L (3.5-5.1) 07/21/22 Chloride 104 mmol/L (98-107) 07/21/22 Carbon Dioxide 26.9 mmol/L (21.0-32.0) 07/21/22 Calcium 9.7 mg/dL (8.5-10.1) 07/21/22 AST 13 U/L (15-37) L 07/21/22 ALT 21 U/L (14-59) 07/21/22 Total Protein 7.9 g/dL (6.4-8.2) 07/21/22 Albumin 3.7 g/dL (3.4-5.0) 07/21/22 TSH 1.27 uIU/mL (0.36-3.74) 07/05/15 Time Spent Time spent with Patient: <40 minutes Time was spent: preparing to see the patient(eg.review tests), obtaining and/or reviewing separately otained hiistory, ordering medications,tests, procedures, referring, communicating with other health primary care nurse practitioner, indepentently interpreting results, counseling the patient and care coordination
--- NOTE | 2022-10-05 20:00 | PDOC.DSDIS_ITS ---
Date of service: 10/06/22 Time of Service: 12:49 Discharge Plan Disposition Patient Disposition: Home Condition: Good Discharge Details Reason For Visit: stomach and colon scope Attending Provider: Lucille Mak Primary Care Provider: Ana Blake Home Meds and New Rx's Prescriptions: Continued albuterol sulfate 90 mcg/actuation Hfa Aerosol Inhaler 2 puff INHALATION Q4-5H PRN Patient Comments: pt just received this rx and has not started this inhaler medication yet, 10/06/22 Discontinued polyethylene glycol 3350 17 gram/dose powder 238 g PO ONCE Qty: 238 0RF Rx Instructions: take per colonoscopy instructions bisacodyl [Dulcolax (bisacodyl)] 5 mg tablet,delayed release (DR/EC) 5 mg PO ONCE Qty: 4 0RF Rx Instructions: take per colonoscopy instructions Discharge Instructions Additional Instructions: DSU Colonoscopy Post- Op Instructions Instructions for Everyone who is given Anesthesia: For your safety, please do the following for the next twenty-four (24) hours: *Do Not operate a motor vehicle (car, truck, motorcycle, etc.) *Do Not drink alcoholic beverages or use any recreational drugs for the first 24 hours or while taking pain medications. The medications in your body may have a reaction that can be dangerous. *Do Not make any important decisions or sign any important papers. Findings: small hiatal hernia moderate divertiula. No active infection Follow up: 2 wks -Continue with lifestyle modifications: no alcohol, tobacco products, Aspirin or NSAID's (ibuprofen, Motrin, Naprosyn, aleve, etc), soda pop/any carbonated beverages, caffeine (including tea & chocolate), and acidic foods, (tomatoes, citrus, onions, peppermints) spicy or fried/fatty foods. Do not lie down for 30 minutes after eating, and do not eat 2 hours prior to bedtime. Avoid wearing tight fitting clothing/ belts -Be sure you are moving your bowels on a regular basis and not straining to go to the bathroom. Consider starting a fiber product such as Metamucil daily. 1. No lifting over 20 pounds or strenuous activity for the first 24 hours after your procedure. After 24 hours there are no restrictions on your activity but you may feel fatigued for a few days. 2. After you arrive home you may have a light meal and return to your normal diet as you can tolerate it without feeling sick to your stomach. 3. You may have a bloated, gaseous feeling in your belly (abdomen) after a colonoscopy. Passing gas and belching will help. Walking or lying down on your left side with your knees flexed may relieve the discomfort. Call the office at [phone] (Office) or [phone] (Hospital) right away if you notice any of the following: a.Vomiting of blood or ?coffee ground stools?. b.Rectal bleeding 1Tbsp, blood clots or continuous bleeding. c.Severe belly (abdominal) pain. d.A hard distended belly (abdomen) and an inability to pass gas. 4. Please don?t expect to have a normal BM (bowel movement) for 2-3 days after your procedure. 5. If there are questions regarding the findings of your procedure, please conta ct your doctor 6. If you are unable to contact your doctor with a problem, contact the hospital at [phone]. 7. Continue all your regular medications unless directed otherwise. I understand the above instructions and have no questions. Signature of Patient or Adult Escort Name of Responsible Adult Escort Signature of Nurse Date/Time Activity:: see above Diet:: As Tolerated Discharge Orders Discharge Orders: Discharge Order (Routine); Ordered 10/06/22 Ordered By: Lucille Mak DS: Diagnosis Discharge Diagnosis (1) Epigastric pain: Status: Acute (2) Abdominal pain: Status: Acute Asessment and Plan: The patient is seen and examined after their colonoscopy.? The patient has been able to pass gas.? They are not having abdominal pain.? They have been able to tolerate liquids and a snack.? They do not have any nausea or vomiting.? They are not having any chest pain or shortness of breath.??? They are not having any rectal bleeding..? Their vital signs have been stable-see nursing notes. We discussed findings during their colonoscopy, and any biopsies that were done/polyps that were removed. The patient will be sent a letter with any biopsy results, and when to repeat the colonoscopy.-see discharge instructions. Patient was given explicit instructions to follow-up regarding colonoscopy-refer to discharge instructions.? We reviewed resumption of medications. Patient verbalized understanding and discharged in stable and satisfactory condition- See nursing notes. (3) Smoker: Status: Acute (4) Hiatal hernia: Status: Chronic (5) Diverticula of colon: Status: Acute (6) Non-cardiac chest pain: Status: Acute (7) History of Lisette fundoplication:
[2022-10-06 10:26] VITALS: BP 119/80; PULSE 81; RESP 16; TEMP 36.4; O2SAT 98
[2022-10-06] MEDS: Lactated Ringers 1,000 ML 80 ML IV (10:45)
--- NOTE | 2022-10-06 11:01 | W.ANESPRE ---
General Info Date of Service Date Performed: 10/06/22 Height: 5 ft 5 in Weight: 80.7 kg Body Mass Index (BMI): 29.6 Surgical Procedure: Operation Date: 10/06/22 11:40 Proposed Procedure Side Surgeon p Colonoscopy/Gastroscopy Lucille Mak DO s Possible Hemorrhoid Banding Lucille Mak DO Meds Allergies and Home Medications Allergies Allergy/AdvReac Type Severity Reaction Status Date / Time baclofen Allergy Severe Other (See Unverified 10/06/22 10:25 Comment) doxycycline Allergy Severe Other (See Unverified 10/06/22 10:25 Comment) bupropion [From Zyban] Allergy Mild Other (See Unverified 10/06/22 10:25 Comment) metronidazole Allergy Verified 10/06/22 10:25 Sulfa (Sulfonamide Allergy Verified 10/06/22 10:25 Antibiotics) Home Medication Medication Instructions Recorded albuterol sulfate 90 mcg/actuation 2 puff inhalation Q4-5H PRN 06/21/22 aerosol inhaler Current Visit Medications: Current Medications Generic Name Dose Route Start Last Admin Trade Name Freq PRN Reason Stop Dose Admin Hyoscyamine Sulfate 0.125 mg 10/06/22 07:52 Hyoscyamine 0.125 Mg Sl/Oral/Chew SL 11/05/22 07:51 DIRECTED PRN Ringer's Solution 1,000 mls @ 80 mls/hr 10/06/22 06:00 10/06/22 10:45 IV 10/06/22 23:59 80 mls/hr INFUSION AUGUST Administration IV Miscellaneous Supplies 1 each 10/06/22 06:00 Iv Access IV 10/06/22 23:59 DIRECTED AUGUST Ondansetron HCl 4 mg 10/06/22 07:52 Ondansetron 4 Mg/2 Ml Vial IVP 11/05/22 07:51 Q4H PRN PRN Nausea / Vomiting Sodium Chloride 0 ml 10/06/22 06:00 Normal Saline Flush 10 Ml Syr IV 10/06/22 23:59 PRN PRN Sodium Chloride 0 ml 10/06/22 06:00 Normal Saline 10 Ml Vial IJ 10/06/22 23:59 DIRECTED PRN Sterile Water 0 ml 10/06/22 06:00 Water,Injection,Sterile 10 Ml Vial IJ 10/06/22 23:59 DIRECTED PRN PFSH Active Problems Active Problems: Problem Status Onset Code Acute viral syndrome B34.9 Epigastric pain R10.13 Abdominal pain R10.9 Smoker F17.200 Seasonal allergies J30.2 Hiatal hernia K44.9 Diverticula of colon K57.30 Non-cardiac chest pain R07.89 Surgical History Surgical History History of Lisette fundoplication Hx of tubal ligation Tobacco Smoking/Tobacco Use Status: Current every day Tobacco Type: cigarettes Alcohol Alcohol Intake: never Substance Use Substance use: Never Substance use type: does not use Vital Signs and Lab Results Vital Signs Most Recent Vital Signs in EMR: Most Recent Vital Signs Temp Pulse Resp BP Pulse Ox 36.4 C L 81 16 119/80 98 10/06/22 10:26 10/06/22 10:26 10/06/22 10:26 10/06/22 10:10/06/22 10:26 Lab Results Blood Type / Crossmatch: No Data to Display Complete Blood Count: No Data to Display Complete Metabolic Panel: No Data to Display Liver Function Panel: No Data to Display Coagulation Panel: No Data to Display Cardiac Panel: No Data to Display Arterial Blood Gas: No Data to Display Venous Blood Gas: No Data to Display Pancreas Panel: No Data to Display Thyroid Panel: No Data to Display Infectious Disease: No Data to Display Blood Cultures: No Data to Display Toxicology Panel: No Data to Display Imaging and Studies Imaging and Studies Study information below may be from another EMR and interpreted by another provider. Please see original notes in EMR for more complete details. EKG Summary: DATE/TIME OF SERVICE: 07/21/222022 : 1955PERFORMING LOCATION: ER APPROVED REPORT Exam: Resting ECG Reason for Exam: chest pain Patient Location: E HR:77 bpm ECG Measurements Heart Rate 77 AXIS ND 175 P 61 QRSd 94 QRS 73 QT 375 T32 QTc 426 Conclusion Sinus rhythm...normal P axis, V-rate 60- 99 Probable left atrial enlargement...P >50mS, <-0.10mV V1 Stress Test Summary: Date of study: 04/19/2017 *PATIENT PRESENTATION* Height: 165.1cm (65in) Blood Pressure: Weight: 78.2kg (172lb) BSA: 1.92m^2 Ordering physician: Brittaney Mckeon Impressions: Normal study after maximal exercise. Pulmonary Function Summary: DATE OF SERVICE - 03/12/2017 REQUESTING PROVIDER - Ana Blake M.D. INTERPRETATION OF STUDY - Spirometry shows mild obstructive airways disease with no significant bronchodilator response. LUNG VOLUMES - Lung volumes show no evidence of restriction. DIFFUSION CAPACITY - Normal. AIRWAY RESISTANCE - Normal. IMPRESSION - Mild obstructive airways disease with no significant bronchodilator response. Clinical correlation recommended. Anesthesia Assessment and Plan Anesthesia History Personal History: No History of Anesthesia Complications Family History: No Family History of Anesthesia Complications Exercise Tolerance Exercise Tolerance: Metabolic Equivalents>4 Pertinent Negatives Pertinent Negatives: No Symptoms of GERD, No Major Cardiovascular Symptoms or Complaints and No Major Pulmonary Symptoms or Complaints Cardiac & Pulmonary Exam Cardiac Exam: Normal S1/S2 Heart Sounds Pulmonary Exam: Clear Bilateral Breath Sounds Implantable Cardiac Device Does patient have a Pacemaker or an ICD?: No Airway Exam Known Difficult Airway: No Mallampati Class: 3 Mouth Opening: Narrow (< 3cm) Thyromental Distance: Greater than 3 cm Neck Range of Motion: Full ROM Neck Circumference: Normal Teeth Condition: Normal Dentition ASA Classification ASA Score: ASA 2 Emergency Case?: No NPO Status NPO Status: NPO Clears >2 hours, Solids >8 hours Anesthesia Plan Resuscitation Status: Full Code Anesthesia Technique: General Anesthesia Airway Planned: Natural Airway Monitors Used: Standard Monitors
[2022-10-06 11:07] VITALS: BMI 29.6
--- NOTE | 2022-10-06 12:15 | STOM_PTH ---
PATIENT: Winter Thomas LOC: [facility] U#:[id number] AGE/SX: 66/F ROOM: RE10/06/[address]: Lucille Mak : 1955 BED: DIS: 10/06/2022 SPEC #: [id number] RECD: 10/06/22 17:19 STATUS: [facility] #: [id number] GIDEON: 10/06/22 12:[address]: Lucille Mak DEPT: Surgical Specimen RECD BY: [place] Estrada ENTERED: 10/06/22 17:21 SP TYPE: STOMACH OTHR DR: Ana Blake Tissues: 1 - BIOPSY BOWEL 2 - STOMACH BIOPSY 3 - STOMACH BIOPSY 4 - ESOPHAGUS BIOPSY 5 - ESOPHAGUS BIOPSY 6 - BIOPSY BOWEL Procedures: GROSS AND MICRO LEVEL 4 Comments: [id number]
[2022-10-06 12:44] VITALS: BP 98/68; PULSE 64; RESP 18; TEMP 36.5; O2SAT 97
--- NOTE | 2022-10-06 12:47 | ENDO_ITS ---
Date of service: 10/06/22 Time of Service: 14:02 Endoscopy Report DATE OF PROCEDURE: 10/06/22 PRE-OP DIAGNOSIS: noncardiac chest pain POST-OP DIAGNOSIS: other (hiatal hernia ) SURGEON: Lucille Mak ANESTHESIA TYPE: General:No Airway ESTIMATED BLOOD LOSS: 1 PATHOLOGY: other COMPLICATIONS: None DISPOSITION: same day PROCEDURE DESCRIPTION: After informed consent was obtained the patient was take to the procedure room and placed in a supine position. Monitors were applied and a time out was done. The patients name, date of , procedure type, allergies to medications and metal in their body was reviewed. A bite block was placed and the patient was sedated. Once sedated and comfortable the gastroscope was advanced through the oropharynx which was grossly normal into the esophagus. The proximal and mid- esophagus were normal. In the distal esophagus there is no esophagitis, varices, diverticula, or stricture noted. She does have a 2cm hiatal hernia. THere is scarring around posterior hiatus so it does not appear to be sliding, . There is no sricture. Her previous Lisette does appear to have come undone. the scope was advanced into the stomach and through the pylorus into the 3rd portion of the duodenum. The duodenum was noted to be normal. Biopsies were done, all specimen was retrieved and no bleeding is noted.. The scope was retracted back into the stomach and biopsies were done to rule out H. pylori. There were no gastritis or ulcers. The scope was retroflexed. The cardia and fundus were noted to be normal. The scope was retracted back into the esophagus and biopsies were done of the GE junction to rule out Amaya's. The Z line was irregular. The GE junction was at 38 cm. The scope was removed and the patient was woken up and taken back to [facility] in stable condition.
[2022-10-06 13:18] VITALS: BP 102/72; PULSE 70; RESP 18; TEMP 36.5; O2SAT 99
--- NOTE | 2022-10-06 14:26 | W.ANESPOSTOP ---
Postoperative Evaluation Date, Time and Location Date Performed: 10/06/22 Time Performed: 14:26 Patient Location: Day Surgery Unit Vital Signs Most Recent Imported Vital Signs: Most Recent Vital Signs Temp Pulse Resp BP Pulse Ox 36.5 C 70 18 102/72 99 10/06/22 13:18 10/06/22 13:18 10/06/22 13:18 10/06/22 13:18 10/06/22 13:18 Pain Score Most Recent Pain Score: Most Recent Pain Score Pain Level 0 10/06/22 13:18 Assessment Mental Status: Awake (Alert & Oriented to Patient Baseline) Airway and Respiratory Function: Patent airway with normal (patient baseline) respiratory exam Cardiovascular Function: Hemodynamically Stable Hydration Status: Adequately Hydrated Nausea & Vomiting: No Nausea or Vomiting Pain: Pt. Denies Any Pain Peripheral Nerve Block: Patient did not receive a nerve block
--- NOTE | 2022-10-08 13:36 | COLE_ITS ---
Date of service: 10/06/22 Time of Service: 01:30 Colonoscopy Report Date of procedure: 10/06/22 Pre-op diagnosis general: Diverticulitis Post-op diagnosis procedure note: other (Same plus internal and external hemorrhoids) Surgeon: Lucille Mak Anesthesia Type: General:No Airway Estimated blood loss (mL): 1 Pathology: other Complications: None Disposition: same day Prep: Miralax/Dulcolax Retraction Time: 10 Procedure Description: After informed consent was obtained the patient was taken to the procedure room and placed in a left decubitous position. Monitors were applied and a time out was done. The patients name, date of , procedure, allergies to medications and metal in their body was reviewed. The patient was then sedated. Once sedated and comfortable a rectal exam was done. External exam reveals si gnificant external hemorrhoids and external hemorrhoidal tags. Internal exam revealed a normal sphincter tone and no palpable masses. The scope was then introduced and retrofelexed. Grade 2 internal hemorrhoids in all 3 columns were identified. Patient did not want to do hemorrhoid banding today the scope was then advanced to the cecum without difficulty. The TI and appendiceal orifice were identified. The prep was BBPS 3 in all segments for a total of 9. The scope was then slowly retracted over 10 minutes back into the rectum. No polyps are visualized today. She does have moderate diverticular disease confined in the sigmoid colon. There is no signs of active and infection. There are some mild edema at 20 cm still. A biopsy was taken of this area. There is no signs of stricturing from diverticulitis. Otherwise the mucosa has a normal vascular pattern and appears healthy. The scope was removed and the patient was woken up and taken back to Same day surgery in stable condition. The patient tolerated the procedure well and there were no immediate complications. Follow up: The patient should follow up in 10 years unless they develop changes in bowel habits or other new gastrointestinal complaints.
== END 2022-10-06 13:48 | disposition home or self-care (01) ==
PROVIDERS: PCP Family Medicine; Visit Provider Surgery
PROC: (CPT 45380; principal; 2022-10-06 11:30)
DX: K44.9 Diaphragmatic hernia without obstruction or gangrene (principal); K64.1 Second degree hemorrhoids; R07.89 Other chest pain; K64.4 Residual hemorrhoidal skin tags; K57.30 Diverticulosis of large intestine without perforation or abscess without bleeding; K22.89 Other specified disease of esophagus; K31.89 Other diseases of stomach and duodenum
CPT/HCPCS: 45380; 43239; 88305; J2001

== ENCOUNTER 2022-10-13 03:04 | Outpatient (CLI) | payer MEDICAID, SELFPAY ==
--- NOTE | 2022-10-13 08:08 | DI.CTLCSR_ITS ---
Exam(s) CT CHEST LUNG CANCER SCREEN EXAM: CT CHEST LUNG CANCER SCREEN CLINICAL HISTORY: TOBACCO ABUSE F17.200 SCREENING FOR LUNG CANCER. TECHNIQUE: Imaging Protocol: Low Dose Technique CONTRAST MATERIAL: None COMPARISON: CT CHEST WITH CONTRAST from 05/01/2016 CT ABD PELVIS WITH CONTRAST from 11/01/[address] CHEST/ABD WO from 07/21/2022 FINDINGS: CHEST: LUNGS: There is mild pleural based density in the posterior aspect of the right upper lobe, unchanged and not associated with overlying rib destruction. This exhibits minimal change from the April 17 CT scan. There are no non pleural based intraparenchymal ominous lung nodules.. There are no pl eural effusions. No significant findings in the trachea and mainstem bronchi. MEDIASTINUM: There is no obvious hilar nor mediastinal adenopathy. CARDIAC: Heart size is normal. There is no pericardial effusion.Caliber of the thoracic aorta is wit hin normal limits. OTHER: Lowermost images again reveal multiple cysts in the liver. Also some calcifications in the ri ght hepatic lobe. Large left kidney cyst again noted. Nodules in both adrenal glands are unchanged from previous CT scans getting back to at least 2018. OSSEOUS: No significant osseous lesions.No fractures.. IMPRESSION: 1. No new significant pulmonary nodules. Stable right upper lobe finding. 2. No pleural effusions nor intrathoracic adenopathy. 3. Lung RADS Cat 2 - Benign Appearance / Behavior: Nodules with a very low likelihood of becoming a c linically active cancer due to size or lack of growth Lung-RADS 1.0 CATEGORIES: Category 0 - Prior chest CT exam(s) being located for comparison. Category 1 - Annual screening in 12 months. No nodules or definitely benign nodules. Category 2 - Annual screening in 12 months. Benign appearance. Nodules with low likelihood of becomin g active cancer. Category 3 - 6-month follow-up. Probably benign. Short-term follow-up suggested. Nodules with low lik elihood of becoming active cancer. Category 4A - 3-month follow-up and CT/PET if >8 mm in size. Suspicious finding. Findings which requi re additional testing. Category 4B - Findings which require additional testing and tissue sampling. Category 4X - Category 3 or 4 nodules with additional features or imaging findings that increases the suspicion of malignancy. Modifier S- Potentially clinically significant findings (non lung cancer) RADIATION DOSE DELIVERED: 70.49mGy.cm Total DLP DATA REPOSITORY: All CT scans at this facility are submitted to the National Radiology Data Registry (NRDR) Dose Index Registry (DIR) with the [employer] ([employer]). RADIATION OPTIMIZATION: All CT scans at this facility use at least one of these dose optimization te chniques: automated exposure control; mA and/or kV adjustment per patient size (includes targeted exa ms where dose is matched to clinical indication); or iterative reconstruction.
== END 2022-10-13 03:24 ==
LOC: DI 03:04
PROVIDERS: PCP Family Medicine; Visit Provider Family Medicine
DX: Z12.2 Encounter for screening for malignant neoplasm of respiratory organs (principal); F17.200 Nicotine dependence, unspecified, uncomplicated; R91.1 Solitary pulmonary nodule
CPT/HCPCS: 71271

== ENCOUNTER 2022-12-08 15:08 | Outpatient (REF) | payer MEDICAID, SELFPAY ==
[2022-12-08 14:47] LABS: Abs Immature Grans 0.03 10^3/uL (0.0-0.06); Absolute Basophil Count 0.04 10^3/uL (0.0-0.2); Absolute Eosinophil Count 0.12 10^3/uL (0.0-0.7); Absolute Lymphocyte Count 2.49 10^3/uL (1.2-3.4); Absolute Monocyte Count 0.77 10^3/uL (0.1-0.8); Absolute Neutrophil Count 6.77 10^3/uL (1.2-6.7); Basophils % 0.4; Eosinophils % 1.2; HCT 41.7 % (36.0-46.0); HGB 13.7 g/dL (11.2-15.7); Immature Grans % 0.3; Lymphocytes % 24.4; MCH 28.7 pg (27.0-33.0); MCHC 32.9 % (32.0-36.0); MCV 87 fL (80-95); MPV 10.4 fL (8.0-11.0); Monocytes % 7.5; Neutrophils % 66.2; Platelet Count 341 10^3/uL (130-400); RBC 4.78 10^6/uL (3.93-5.22); RDW 13.5 % (11.7-14.6); RDW-SD 43.6 fL; WBC 10.22 10^3/uL (4.4-10.8)
[2022-12-08 15:04] LABS: ESR 55 mm/hr (0-30)
[2022-12-08 16:19] LABS: ALT 17 U/L (14-59); AST 14 U/L (15-37); Albumin 3.6 g/dL (3.4-5.0); Alkaline Phosphatase 80 U/L (46-116); Amylase 26 U/L (25-115); Anion Gap 9.3 mmol/L (3-11); BUN 17 mg/dL (7-18); Bilirubin, Total 0.4 mg/dL (0.2-1.0); CO2 25.7 mmol/L (21.0-32.0); CREATININE 1.2 mg/dL (0.55-1.02); Calcium 9.2 mg/dL (8.5-10.1); Chloride 105 mmol/L (98-107); Estimated GFR 50.23 (mL/min/1.73m2); Glucose 91 mg/dL (74-106); Lipase 24 U/L (16-77); Potassium 4.3 mmol/L (3.5-5.1); Sodium 140 mmol/L (136-145); Total Protein 7.5 g/dL (6.4-8.2)
== END 2022-12-08 15:09 | disposition home or self-care (01) ==
LOC: NCHCN 15:08
PROVIDERS: PCP Family Medicine; Visit Provider Nurse Practitioner Family
DX: K57.92 Diverticulitis of intestine, part unspecified, without perforation or abscess without bleeding (principal)
CPT/HCPCS: 80053; 83690; 85652; 82150; 85025

== ENCOUNTER 2022-12-22 14:17 | Emergency (ER) | payer MEDICAID, SELFPAY ==
[2022-12-22 14:39] VITALS: BP 124/72; PULSE 66; RESP 17; TEMP 36.7; O2SAT 95
--- NOTE | 2022-12-22 15:15 | DI.RAD_ITS ---
Exam(s) XR CHEST 2V PA LATERAL EXAM: XR CHEST 2V PA LATERAL CLINICAL HISTORY: URI, smoker TECHNIQUE: 2D digital imaging was performed. COMPARISON: CT CT CHEST LUNG CANCER SCREEN from 10/13/2022 FINDINGS: HEART: Normal size. Aorta: Not dilated. PULMONARY VASCULATURE: Normal. LUNGS: Clear. PLEURAL SPACE: No pleural effusion or pneumothorax. BONE:Unremarkable for age. IMPRESSION: No acute abnormality. DATA REPOSITORY: RADIATION DOSE DELIVERED:
--- NOTE | 2022-12-22 15:42 | W.ED.GENAD ---
Discharge Plan Disposition Patient Disposition: Home Condition: Stable Discharge Details Clinical Impression: Viral upper respiratory tract infection Primary Care Provider: Ana Blake ED Provider: May Peralta Home Meds and New Rx's Prescriptions: Continued albuterol sulfate 90 mcg/actuation Hfa Aerosol Inhaler 2 puff INHALATION Q4-5H PRN Patient Comments: pt just received this rx and has not started this inhaler medication yet, 10/06/22 Discharge Instructions Instructions: Upper Respiratory Infection (ED) Additional Instructions: Take Mucinex DM for cough, Zyrtec for runny nose, and pseudoephedrine for congestion. Use Ricola cough drops and the albuterol inhaler for cough as well. This is likely a viral illness and antibiotics are not likely to help. Your chest x-ray was normal today. COVID/flu/RSV swab was negative.. Return to ED for severe chest pain, difficulty breathing, any other concerns. Recheck with your primary care doc if no better within a week or 2. Discharge Data Discharge Date/Time-TO BE ENTERED AT DEPARTURE: 12/22/22 16:52 Medical Decision Making Patient was updated on her test results at 1650. She continues to look nontoxic and I have recommended some [id number] medications that I think will help with her cough. We also discussed what to come back for. HPI General Date/Time Provider Initiated Documentation: 12/22/22 15:09. [facility] Narrative: This 67-year-old female patient with a long smoking history presents with a chief complaint of URI symptoms that began about a week ago. She said at first she had a runny nose and congestion as well as a sore throat. These got better and she began having a hacking cough. She is coughing so hard that she is incontinent of urine at times. Denies fever or shaking chills to me. Son evidently said her forehead felt warm once. She has no difficulty breathing except when coughing takes her breath away. She just finished a single antibiotic diverticulitis but does not know the name of this. After the abx were done she began taking TheraFlu to treat her cough and cold-like symptoms. He has no chest or abdominal pain. There is no vomiting or diarrhea. She has no pedal edema or calf pain. I called her doctor's office but they said she should probably come to the ER since they would likely get a chest x-ray on him. Related Data Home Medications Medication Instructions Recorded Confirmed albuterol sulfate 90 mcg/actuation 2 puff inhalation Q4-5H PRN 06/21/22 10/06/22 aerosol inhaler Allergies Allergy/AdvReac Type Severity Reaction Status Date / Time baclofen Allergy Severe Other (See Unverified 10/06/22 10:25 Comment) doxycycline Allergy Severe Other (See Unverified 10/06/22 10:25 Comment) bupropion [From Zyban] Allergy Mild Other (See Unverified 10/06/22 10:25 Comment) metronidazole Allergy Verified 10/06/22 10:25 Sulfa (Sulfonamide Allergy Verified 10/06/22 10:25 Antibiotics) General Stated Complaint: RespSymp TOM: 4 Review of Systems Constitutional Constitutional: Denies chills, Denies fever(s), Reports headache(s) and Denies weakness Eyes Eyes: Denies diplopia and Reports other (no redness) ENT Ears, Nose, Mouth, and Throat: Reports otalgia (L), Reports headache(s), Reports nasal congestion, Reports nasal discharge, Denies neck pain and Reports sore throat Cardiovascular Cardiovascular: Denies chest pain, Denies palpitations and Reports dyspnea (when has a bad coughing jag) Respiratory Respiratory: Reports cough and Reports dyspnea (when has a bad coughing jag) Gastrointestinal Gastrointestinal: Denies abdominal pain, Denies diarrhea, Denies nausea and Denies vomiting Genitourinary Genitourinary: Denies dysuria and Reports urinary incontinence (with cough) Musculoskeletal Musculoskeletal: Denies myalgias, Denies muscle weakness, Denies neck pain, Denies numbness and Reports other (edema) Integumentary/Breasts Skin/Breast: Denies change in pigmentation and Denies rash Neurologic Neurologic: Reports headache(s), Denies numbness and Denies weakness Endocrine Endocrine: Denies palpitations PFSH All Active Problems (Updated 12/22/22 @ 16:49 by May Peralta MD) Viral upper respiratory tract infection (Acute) Acute viral syndrome (Acute) Epigastric pain (Acute) Abdominal pain (Acute) Smoker (Acute) Seasonal allergies (Acute) Hiatal hernia (Chronic) Diverticula of colon (Acute) Non-cardiac chest pain (Acute) Surgical History History of Lisette fundoplication Hx of tubal ligation Social History Smoking/Tobacco Use Status: Current every day Tobacco Type: cigarettes Years smoked: 53 Smoking risk assessment performed?: Yes Alcohol Intake: never Drug use: Never Substance use type: does not use Details: tobacco use at 0900 this am, 10/06/22 Do you feel safe at home: Yes Do you feel safe in your relationship?: Yes Exam Const General: no acute distress, well developed, well groomed and not in acute distress Nutritional Appearance: well nourished Orientation: alert and oriented x3 HENMT Head: normocephalic and atraumatic Ears: external ears normal Mouth: oropharynx normal and moist mucous membranes Throat: posterior oropharynx normal Eyes Conjunctivae: conjunctivae normal Neck Neck: full ROM and supple Chest Chest: normal inspection of the chest Resp Effort & Inspection: normal respiratory effort Auscultation: clear to auscultation bilaterally Cardio Rate: regular rate Rhythm: regular rhythm Heart Sounds: no murmurs and no rubs GI Inspection: normal to inspection Palpation: soft, nontender and other (non distended) Auscultation: normal bowel sounds Skin General skin exam: no rashes or lesions noted and other (pink, warm, dry) Neuro General: patient alert, patient awake and patient oriented x3 Speech: speech normal Motor: other (FENG) Sensory Exam: no sensory deficits noted Extrem General: normal to inspection, full ROM and pedal edema present Psych Mental Status: mental status grossly normal Speech and Movement: speech and movement normal Affect: normal affect Course Vital Signs Vital signs: Vital Signs Temperature 36.7 C 12/22/22 14:39 Pulse 66 12/22/22 14:39 Respiratory Rate 17 12/22/22 14:39 Blood Pressure 124/72 12/22/22 14:39 Pulse Oximetry 95 12/22/22 14:39 Temperature 36.7 C 12/22/22 14:39 Temperature Source Oral 12/22/22 14:39 Pulse 66 12/22/22 14:39 Respiratory Rate 17 12/22/22 14:39 Respiratory Effort Normal, Non-Labored 12/22/22 14:43 Respiratory Depth Normal 12/22/22 14:43 Blood Pressure 124/72 12/22/22 14:39 Blood Pressure Position Sitting 12/22/22 14:39 Pulse Oximetry 95 12/22/22 14:39 Oxygen Delivery Method Room Air 12/22/22 14:39 Oxygen Flow Rate 0 12/22/22 14:39
[2022-12-22 16:11] LABS: COVID-19 PCR Negative (Negative); Influenza A PCR Negative (Negative); Influenza B PCR Negative (Negative); RSV PCR Negative (Negative)
[2022-12-22 16:12] LABS: Source Nasopharynx
== END 2022-12-22 16:52 | disposition home or self-care (01) ==
PROVIDERS: Emergency Provider Emergency Medicine; PCP Family Medicine
DX: J06.9 Acute upper respiratory infection, unspecified (principal); B97.89 Other viral agents as the cause of diseases classified elsewhere; F17.210 Nicotine dependence, cigarettes, uncomplicated; Z20.822 Contact with and (suspected) exposure to COVID-19
CPT/HCPCS: 87637; 99283; 71046

== ENCOUNTER 2023-09-27 15:08 | Outpatient (REF) | payer MEDICAID, SELFPAY ==
[2023-09-27 15:12] LABS: HCT 43.3 % (36.0-46.0); HGB 14.3 g/dL (11.2-15.7); MCH 29.4 pg (27.0-33.0); MCV 89 fL (80-95); MPV 10.5 fL (8.0-11.0); Platelet Count 359 10^3/uL (130-400); RBC 4.87 10^6/uL (3.93-5.22); RDW 12.7 % (11.7-14.6); RDW-SD 41.8 fL; WBC 8.19 10^3/uL (4.4-10.8)
[2023-09-27 16:00] LABS: ALT 25 U/L (14-59); AST 15 U/L (15-37); Albumin 4.1 g/dL (3.4-5.0); Alkaline Phosphatase 70 U/L (46-116); Anion Gap 11.8 mmol/L (3-11); BUN 21 mg/dL (7-18); Bilirubin, Total 0.4 mg/dL (0.2-1.0); CO2 24.2 mmol/L (21.0-32.0); CREATININE 1.1 mg/dL (0.55-1.02); Calcium 9.3 mg/dL (8.5-10.1); Calculated LDL 202 mg/dL (<100); Chloride 109 mmol/L (98-107); Cholesterol 279 mg/dL (<200); Estimated GFR 55.76 (mL/min/1.73m2); Glucose 110 mg/dL (74-106); HDL Cholesterol 52 mg/dL (40-60); Potassium 4.3 mmol/L (3.5-5.1); Sodium 145 mmol/L (136-145); Total Protein 7.9 g/dL (6.4-8.2); Triglyceride 128 mg/dL (<150)
[2023-09-27 17:04] LABS: Vitamin D 25 Total 33.8 ng/mL (30-100)
== END 2023-09-27 15:09 | disposition home or self-care (01) ==
LOC: NCHCN 15:08
PROVIDERS: PCP Family Medicine; Visit Provider Family Medicine
DX: Z00.00 Encounter for general adult medical examination without abnormal findings (principal)
CPT/HCPCS: 80053; 80061; 82306; 85027

== ENCOUNTER 2023-12-30 13:17 | Emergency (ER) | payer MEDICAID, SELFPAY ==
[2023-12-30 13:18] VITALS: BP 122/83; PULSE 85; RESP 16; TEMP 36.6; O2SAT 97
[2023-12-30 13:37] VITALS: BP 122/83; PULSE 85; RESP 16; TEMP 36.6; O2SAT 97
--- NOTE | 2023-12-30 13:53 | ED.GENADUL_ITS ---
Discharge Plan Disposition Patient Disposition: Home Condition: Stable Discharge Details Clinical Impression: Acute diverticulitis, Abdominal pain Primary Care Provider: Ana Blake ED Provider: Chris Mckeon Home Meds and New Rx's Prescriptions: New amoxicillin-pot clavulanate 875-125 mg tablet 1 tab PO Q8H Qty: 41 0RF Discontinued albuterol sulfate 90 mcg/actuation Hfa Aerosol Inhaler 2 puff INHALATION Q4-5H PRN Patient Comments: pt just received this rx and has not started this inhaler medication yet, 10/06/22 Discharge Instructions Instructions: Diverticulitis (DC) Additional Instructions: Please take full course of antibiotic as prescribed. Please contact your primary care physician to arrange follow-up. Return to the ER immediately for any worsening or new concerning symptoms. You elected to not pursue diagnostic testing today. Should pain not improve as expected, additional diagnostic testing is warranted. Referrals: Ana Blake [Primary Care Provider] - Discharge Data Discharge Date/Time-TO BE ENTERED AT DEPARTURE: 12/30/23 14:21 HPI General Mode of arrival: ambulatory . Date/Time Provider Initiated Documentation: 12/30/23 13:42 . Limitations to Documentation: no limitations . Information obtained by: patient . HPI Narrative: 68-year-old female with history of diverticulitis, presents with chief complaint of abdominal pain. Patient notes pain exactly the same as prior flare of diverticulitis. Pain started 5 to 6 days ago. She notes her last exacerbation was about 1 year ago and was treated with antibiotics. Patient denies bright red blood per rectum. No diarrhea. No associated nausea or vomiting. Patient does note that she has had intermittent fevers. Related Data Home Medications ?Medication ?Instructions ?Recorded ?Confirmed amoxicillin 875 mg-potassium 1 tab PO Q8H #41 tabs 12/30/23 clavulanate 125 mg tablet Previous Rx's ?Medication ?Instructions ?Recorded amoxicillin 875 mg-potassium 1 tab PO Q8H #41 tabs 12/30/23 clavulanate 125 mg tablet Allergies Allergy/AdvReac Type Severity Reaction Status Date / Time baclofen Allergy Severe Other (See Unverified 12/30/23 13:23 Comment) doxycycline Allergy Severe Other (See Unverified 12/30/23 13:23 Comment) bupropion (From Zyban) Allergy Mild Other (See Unverified 12/30/23 13:23 Comment) metronidazole Allergy Other (See Verified 12/30/23 13:23 Comment) Sulfa (Sulfonamide Allergy Other (See Verified 12/30/23 13:23 Antibiotics) Comment) Iodinated Contrast Media AdvReac Intermediate Diarrhea Verified 12/30/23 13:24 General Stated Complaint: Abd Prob TOM: 3 Review of Systems All systems reviewed & are unremarkable except as noted in HPI and below Exam Const General: cooperative and no acute distress HENMT Mouth: moist mucous membranes Eyes Conjunctivae: normal conjunctivae Sclera: normal sclerae Resp Auscultation: clear to auscultation bilaterally, no rales, no rhonchi and no wheezes Cardio Rate: regular rate and not tachycardic Rhythm: regular rhythm GI Palpation: soft, not firm, no guarding, no masses, not rigid and tender in the LLQ; with no rebound tenderness Skin General skin exam: no rashes or lesions noted Neuro General: patient alert, patient awake, patient oriented x3 and tone normal Extrem General: no edema Course Vital Signs Vital signs: Vital Signs Temperature 36.6 C 12/30/23 13:18 Pulse 85 12/30/23 13:18 Respiratory Rate 16 12/30/23 13:18 Blood Pressure 122/83 12/30/23 13:18 Pulse Oximetry 97 12/30/23 13:18 Temperature 36.6 C 12/30/23 13:37 Temperature Source Skin 12/30/23 13:37 Pulse 85 12/30/23 13:37 Respiratory Rate 16 12/30/23 13:37 Respiratory Effort Normal, Non-Labored 12/30/23 13:37 Blood Pressure 122/83 12/30/23 13:37 Blood Pressure Position Sitting 12/30/23 13:37 Pulse Oximetry 97 12/30/23 13:37 Oxygen Delivery Method Room Air 12/30/23 13:37 Oxygen Flow Rate 0 12/30/23 13:37 Pain Level 5 12/30/23 13:37 Comment advil 2 nights ago 12/30/23 13:37 Medical Decision Making 68-year-old female with history of diverticulitis, last exacerbation about 1 year ago, here with abdominal pain over the past 5 to 6 days. Tender left lower quadrant. No peritoneal findings symptoms currently same as prior exacerbation. Patient provided informed refusal of further diagnostics including CT. Patient would prefer trial of antibiotics. I contacted PCP regarding prior antibiotic that was effective a year ago. Plan to initiate treatment with Augmentin. Disposition decision was made weighing the risks and benefits of hospitalization versus outpatient treatment, the risk for further decompensation, and the patient's wishes. The patient was stable and requested discharge. Prior to discharge, my usual and customary return precautions were reviewed with the patient - this included follow-up instructions and reason to return to the emergency department if condition worsens, does not improve as expected, or other new concerns arise. Quality:SDOH Health Related Social Needs: No Data to Display PFSH All Active Problems (Updated 12/30/23 @ 13:59 by Chris Mckeon MD) Abdominal pain (Acute) Acute diverticulitis (Acute) Acute viral syndrome (Acute) Epigastric pain (Acute) Abdominal pain (Acute) Smoker (Acute) Seasonal allergies (Acute) Hiatal hernia (Chronic) Diverticula of colon (Acute) Non-cardiac chest pain (Acute) Surgical History Hx of tubal ligation History of Lisette fundoplication Social History Smoking/Tobacco Use Status: Current every day Tobacco Type: cigarettes Years smoked: 53 Smoking risk assessment performed?: Yes Alcohol Intake: never Drug use: Never Substance use type: does not use Details: tobacco use at 0900 this am, 10/06/22 Do you feel safe at home: Yes Do you feel safe in your relationship?: Yes
[2023-12-30] MEDS: Amoxicillin 875/Clav. 125 TAB PO (14:20)
[2023-12-30 14:21] VITALS: BP 109/73; PULSE 85; RESP 18; O2SAT 95
== END 2023-12-30 14:21 | disposition home or self-care (01) ==
LOC: ER 14:42
PROVIDERS: Emergency Provider Student in an Organized Health Care Education/Training Program; PCP Family Medicine
DX: K57.92 Diverticulitis of intestine, part unspecified, without perforation or abscess without bleeding (principal)
CPT/HCPCS: 99283; 99284

== ENCOUNTER 2024-07-11 22:07 | Emergency (ER) | payer MEDICAID, SELFPAY ==
[2024-07-11] VITALS (14 sets, daily range): BP systolic 103; BP diastolic 89; PULSE 64–87; RESP 13–24; TEMP 36.5; O2SAT 92–97
--- NOTE | 2024-07-11 22:00 | RT.EKG_ITS ---
APPROVED REPORT Exam: Resting ECG Reason for Exam: Dizzy Patient Location: E HR:74 bpm ECG Measurements Heart Rate 74 AXIS ID 168 P 71 QRSd 93 QRS 74 QT 396 T 18 QTc 438 Conclusion Sinus rhythm...normal P axis, V-rate 60- 99 Probable left atrial enlargement...P >50mS, <-0.10mV V1 Low voltage, precordial leads...precordial leads <1.0mV Nonspecific ST-T changes There are no significant changes compared to prior EKG performed on 07/21/2022 at 20:23.
--- NOTE | 2024-07-11 22:15 | ED.GENADUL_ITS ---
Discharge Plan Disposition Patient Disposition: Home Condition: Improving Discharge Details Clinical Impression: Benign paroxysmal positional vertigo of right ear Primary Care Provider: Ana Blake ED Provider: Samuel Dhillon Meds and New Rx's Prescriptions: New diazepam 5 mg tablet 2.5 - 5 mg PO TID PRN (Reason: dizziness or vertigo) Qty: 10 0RF Discharge Instructions Instructions: Vestibular Exercises, Vertigo ED Additional Instructions: You were seen for sudden onset of dizziness with a positive Jina-Hallpike test to the right. You may take diazepam as needed to help with symptoms but doing the exercises on the handout at home are more likely to help. Follow up with PCP, a referral to PT may be helpful if this does not resolve in the next couple of days. Return to ED for inability to walk, neurological change, vision change, syncope, chest pain, severe headache. Referrals: Ana Blake [Primary Care Provider] - Discharge Data Discharge Date/Time-TO BE ENTERED AT DEPARTURE: 07/12/24 00:49 HPI General Mode of arrival: EMS . Date/Time Provider Initiated Documentation: 07/11/24 22:15 . Limitations to Documentation: no limitations . Information obtained by: patient and RN notes reviewed . HPI Narrative: Patient presents to ED with onset of dizziness. She describes it as a spinning sensation but also reports feeling like she is going to pass out. She has just gotten over COVID and pneumonia. She is a smoker and has a chronic cough which is unchanged. She had initially developed right earache prior to any of this. She is not having ear pain currently. She denies having any headache, vision change, speech change, numbness or weakness. She denies any chest pain or shor tness of breath. She did not actually pass out. Symptoms started after she had turned her head to the left to speak to someone. She immediately became dizzy. If she is sitting completely still with her head straight symptoms resolve. She has not had this previously. Related Data Home Medications ?Medication ?Instructions ?Recorded ?Confirmed diazepam 5 mg tablet 2.5 - 5 mg (0.5 - 1 x 5 mg) PO TID 07/12/24 PRN dizziness or vertigo #10 tabs Previous Rx's ?Medication ?Instructions ?Recorded diazepam 5 mg tablet 2.5 - 5 mg (0.5 - 1 x 5 mg) PO TID 07/12/24 PRN dizziness or vertigo #10 tabs Allergies Allergy/AdvReac Type Severity Reaction Status Date / Time baclofen Allergy Severe Other (See Unverified 07/11/24 22:22 Comment) doxycycline Allergy Severe Other (See Unverified 07/11/24 22:22 Comment) bupropion (From Zyban) Allergy Mild Other (See Unverified 07/11/24 22:22 Comment) metronidazole Allergy Other (See Verified 07/11/24 22:22 Comment) Sulfa (Sulfonamide Allergy Other (See Verified 07/11/24 22:22 Antibiotics) Comment) Iodinated Contrast Media AdvReac Intermediate Diarrhea Verified 07/11/24 22:22 General TOM: 3 Exam Narrative Exam Narrative: Const: WDWN female in NAD. VS per triage. HEENT: NC/AT. Normal facial exam. TMs clear. Eyes: PERRL and EOMI. No nystagmus elicited. Neck: Supple. Trachea midline. Lungs: Normal respiratory effort. Few rhonchi and wheezes. Cor: RRR without murmur. Good radial pulses. Neuro: A+O x 3. Normal speech, mentation. Cranial nerves II - XII grossly intact. No gross motor or sensory deficit. Medical Decision Making Patient presenting to ED by ambulance with acute onset of what appears to be vertigo. She is asymptomatic if she sits on the stretcher with her head staring forward. Any type of movement seems to bring on her vertigo. She has not had this previously. She is getting over COVID and pneumonia. She is a smoker and continues with cough but reports this is chronic and unchanged. She has no neurologic findings. I performed Rush-Hallpike maneuver. She was positive to the right. Given her presentation, normal neurologic exam, positive Rush- Hallpike I did not feel imaging or labs were necessary. An EKG had been obtained on arrival. It is sinus rhythm with nonspecific changes but completely unchanged from previous per my read. Patient was given an oral dose of meclizine with no real relief. She then rec eived oral diazepam with improvement. She was able to move a little bit better. I have provided her with Parviz maneuver done at home. I will also provide short course of diazepam for her acute symptoms. She is instructed to get up and move slowly. She should follow-up with primary care if not improving and may benefit from referral to PT though hopefully this resolves in the next day or 2. She was given return precautions including new neurologic change, vision change, worsening headache, other concerns. ECG Data Attestation: I personally reviewed and interpreted this ECG (s) as follows: Prior ECG tracings: available for review Interpretation: see EKG/MDM PFS All Active Problems (Updated 07/12/24 @ 00:34 by Samuel Dhillon MD) Benign paroxysmal positional vertigo of right ear (Acute) Smoker (Acute) Seasonal allergies (Acute) Diverticula of colon (Acute) Medical History (Updated 07/12/24 @ 00:34 by Samuel Dhillon MD) Hiatal hernia Surgical History Hx of tubal ligation History of Lisette fundoplication Social History Smoking/Tobacco Use Status: Current every day Tobacco Type: cigarettes Years smoked: 53 Smoking risk assessment performed?: Yes Alcohol Intake: never Drug use: Never Substance use type: does not use Details: tobacco use at 0900 this am, 10/06/22 Housing: apartment Do you feel safe at home: Yes Do you feel safe in your relationship?: Yes
[2024-07-11] MEDS: Meclizine 25 MG TAB PO (22:41)
[2024-07-11] MEDS: diazePAM 5 MG TAB PO (23:47)
[2024-07-12] VITALS: PULSE 64; PULSE 65; RESP 18; O2SAT 91
[2024-07-12 00:49] VITALS: BP 107/57; PULSE 68; RESP 18; TEMP 36.5; O2SAT 93
== END 2024-07-12 00:49 | disposition home or self-care (01) ==
PROVIDERS: Emergency Provider Emergency Medicine; PCP Family Medicine
DX: H81.11 Benign paroxysmal vertigo, right ear (principal); R05.3 Chronic cough; F17.210 Nicotine dependence, cigarettes, uncomplicated
CPT/HCPCS: 93005; 99284; 93010

== ENCOUNTER 2025-03-31 20:20 | Emergency (ER) | payer MEDICAID, SELFPAY ==
[2025-03-31 20:28] VITALS: BP 141/73; PULSE 96; RESP 20; TEMP 36.8
--- NOTE | 2025-03-31 20:45 | DI.RAD_ITS ---
Exam(s) XR RIBS LT W PA LAT CHEST EXAM: XR RIBS LT W PA LAT CHEST CLINICAL HISTORY: L rib pain, cough. TECHNIQUE: 2D digital imaging was performed. COMPARISON: CR XR CHEST 2V PA LATERAL from 12/22/2022 FINDINGS: Total 6 views: Left ribs-four views: There are no left rib fractures identified. No left rib lesions. Visualized left scapula and humerus and clavicle appear unremarkable. Chest-two views: Heart size normal mediastinum is not widened. No infiltrates nor pleural effusions. No pneumothorax. IMPRESSION: No left rib fractures evident No acute pulmonary findings. DATA REPOSITORY: RADIATION DOSE DELIVERED:
--- NOTE | 2025-03-31 21:00 | ED.GENADUL_ITS ---
Discharge Plan Discharge Details Chief Complaint: Chest/Rib Primary Care Provider: Ana Blake ED Provider: Nata Correia Home Meds and New Rx's Prescriptions: No Action naproxen sodium [All Day Pain Relief] 220 mg tablet 220 mg PO BID-TID PRN HPI General Date/Time Provider Initiated Documentation: 03/31/25 20:28 . HPI Narrative: Winter is a 67-year-old female presents the emergency department today for evaluation of left-sided rib pain. She reports that for the last couple of days she has had viral symptoms that she causing her granddaughter, including intermittent fever/chills, headache, congestion, right ear discomfort, postnasal drip, and cough. Last night she had a prolonged coughing fit after which she had a left-sided chest pain with deep breathing and palpation. Says she has broken ribs previously from coughing fits, is concerned that it may have happened at this time. She denies episodes of dizziness, nausea/vomiting, change in p.o. intake, abdominal pain, change in bowel or bladder function, calf redness/swelling/tenderness. Denies history of blood clots, recent surgery/immobility, hemoptysis, diagnosis of cancer. She is a smoker, has not been diagnosed with COPD or lung disease. Denies significant past medical history such as cardiac disease, lung disease, diabetes, or immunocompromise. Related Data Home Medications Medication Instructions Recorded Confirmed naproxen sodium 220 mg tablet (All 220 mg PO BID-TID P RN 03/31/25 03/31/25 Day Pain Relief) Allergies Allergy/AdvReac Type Severity Reaction Status Date / Time baclofen Allergy Severe Other (See Unverified 03/31/25 20:32 Comment) doxycycline Allergy Severe Other (See Unverified 03/31/25 20:32 Comment) bupropion (From Zyban) Allergy Mild Other (See Unverified 03/31/25 20:32 Comment) metronidazole Allergy Other (See Verified 03/31/25 20:32 Comment) Sulfa (Sulfonamide Allergy Other (See Verified 03/31/25 20:32 Antibiotics) Comment) Iodinated Contrast Media AdvReac Intermediate Diarrhea Verified 03/31/25 20:32 General Stated Complaint: Chest/Rib TOM: 3 Exam Const General: cooperative and no acute distress Nutritional Appearance: average body habitus and well nourished Orientation: alert and oriented x3 HENMT Head: normal to inspection Ears: hearing grossly normal bilaterally Resp Effort & Inspection: normal respiratory effort and cough Auscultation: other (Coarse lung sounds in all rios) Cardio Rate: regular rate Rhythm: regular rhythm Extrem General: normal to inspection, full ROM and no pedal edema Course Vital Signs Vital signs: Vital Signs Temperature 36.8 C 03/31/25 20: Pulse 96 H 03/31/25 20:28 Respiratory Rate 20 03/31/25 20: Blood Pressure 141/73 H 03/31/25 20:28 Temperature 36.8 C 03/31/25 20: Pulse 96 H 03/31/25 20:28 Respiratory Rate 20 03/31/25 20: Blood Pressure 141/73 H 03/31/25 20: Blood Pressure Position Sitting 03/31/25 20:28 Medical Decision Making Winter is a 69-year-old female who presents to the emergency department today for evaluation of left rib pain associated with coughing fits and deep breathing after onset of viral symptoms a couple days ago. Granddaughter was sick with similar symptoms. Physical exam remarkable for coarse lung sounds in all rios and frequent coughing. Tenderness to palpation of anterior ribs just under the breast. Vital signs reassuring. D/dx includes but is not limited to: Pneumonia, viral illness such as COVID-19 or flu, acute bronchitis, pleural effusion, neoplasm, postnasal drip, costochondritis, muscle strain. No red flags in history or presentation concerning for PE or cardiac etiology I independently interpreted the following tests: CBC, CMP, COVID/flu/RSV negative. No obvious infiltrates noted on chest x-ray, this was confirmed by radiologist As patient continues to have significant pain, D-dimer performed as she cannot be ruled out using PERC criteria, this was negative. CT non contrast ordered to evaluate for fractures or other structural abnormalities. While in the emergency dept patient received Tessalon Perles for cough. End of report given to Dr. Clark, CT pending. Imaging Data Radiologic Study: Radiologist's impression: PROCEDURE INFORMATION: Exam: XR Left Ribs Exam date and time: 03/31/2025 9:01 PM Age: 69 years old Clinical indication: Left-sided; Other: L rib pain, cough TECHNIQUE: Imaging protocol: Radiologic exam of the left ribs. Views: 2 views. COMPARISON: CR XR CHEST 2V PA LATERAL 12/22/2022 3:38 PM FINDINGS: Bones/joints: There is a cutaneous marker on the lower left anterior chest wall underneath the left breast which projects over the anterior costal cartilage of the of the left 7th rib. Within the limits of the exam, no acute fracture is demonstrated. Soft tissues: No gross focal soft tissue abnormality is seen. IMPRESSION: Cutaneous marker on the lower left anterior chest wall projecting over the anterior costal cartilage of the left 7th rib. Within the limits of the exam, no acute fracture is demonstrated. If there is persistent concern for an acute rib fracture or for injury to the costal cartilages, CT imaging could be obtained for improved evaluation. 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 If there is a discrepancy between the preliminary and final interpretation, please notify [employer] via [email or web address]. If you do not have access to our QA portal, call our QA team at [phone] CONFIDENTIALITY STATEMENT This report is intended only for the use of the referring physician, and only in accordance with law, If you received this in error, call [phone] Page 2 of 2 TECHNIQUE: Imaging protocol: Radiologic exam of the chest. Views: 2 views. COMPARISON: CR XR CHEST 2V PA LATERAL 12/22/2022 3:38 PM FINDINGS: Lungs: No pulmonary consolidation is seen. Pleural spaces: No pleural effusion or pneumothorax is demonstrated. Heart/Mediastinum: The heart appears normal in size. Bones/joints: The visualized bony structures appear grossly intact. IMPRESSION: No active disease is seen in the chest. PFSH All Active Problems (Updated 08/12/24 @ 00:00 by [facility]) Smoker (Acute) Seasonal allergies (Acute) Diverticula of colon (Acute) Medical History (Updated 08/12/24 @ 00:00 by [facility]) Hiatal hernia Surgical History Hx of tubal ligation History of Lisette fundoplication Social History Smoking/Tobacco Use Status: Current every day Tobacco Type: cigarettes Years smoked: 53 Smoking risk assessment performed?: Yes Alcohol Intake: never Drug use: Never Substance use type: does not use Details: tobacco use at 0900 this am, 10/06/22 Housing: apartment Do you feel safe at home: Yes Do you feel safe in your relationship?: Yes
[2025-03-31] MEDS: Benzonatate 100 MG CAP PO (21:23)
[2025-03-31 21:28] LABS: Abs Immature Grans 0.01 10^3/uL (0.0-0.06); HCT 38.3 % (36.0-46.0); HGB 12.9 g/dL (11.2-15.7); Immature Grans % 0.1 %; MCH 28.7 pg (27.0-33.0); MCHC 33.7 % (32.0-36.0); MCV 85 fL (80-95); MPV 9.7 fL (8.0-11.0); Platelet Count 323 10^3/uL (130-400); RBC 4.50 10^6/uL (3.93-5.22); RDW 12.8 % (11.7-14.6); RDW-SD 39.8 fL; WBC 7.42 10^3/uL (4.4-10.8)
--- NOTE | 2025-03-31 21:33 | DI.VRAD_ITS ---
PROCEDURE INFORMATION: Exam: XR Left Ribs Exam date and time: 03/31/2025 9:01 PM Age: 69 years old Clinical indication: Left-sided; Other: L rib pain, cough TECHNIQUE: Imaging protocol: Radiologic exam of the left ribs. Views: 2 views. COMPARISON: CR XR CHEST 2V PA LATERAL 12/22/2022 3:38 PM FINDINGS: Bones/joints: There is a cutaneous marker on the lower left anterior chest wall underneath the left breast which projects over the anterior costal cartilage of the of the left 7th rib. Within the limits of the exam, no acute fracture is demonstrated. Soft tissues: No gross focal soft tissue abnormality is seen. IMPRESSION: Cutaneous marker on the lower left anterior chest wall projecting over the anterior costal cartilage of the left 7th rib. Within the limits of the exam, no acute fracture is demonstrated. If there is persistent concern for an acute rib fracture or for injury to the costal cartilages, CT imaging could be obtained for improved evaluation. PROCEDURE INFORMATION: Exam: XR Chest Exam date and time: 03/31/2025 9:01 PM Age: 69 years old Clinical indication: Left-sided; Other: L rib pain, cough TECHNIQUE: Imaging protocol: Radiologic exam of the chest. Views: 2 views. COMPARISON: CR XR CHEST 2V PA LATERAL 12/22/2022 3:38 PM FINDINGS: Lungs: No pulmonary consolidation is seen. Pleural spaces: No pleural effusion or pneumothorax is demonstrated. Heart/Mediastinum: The heart appears normal in size. Bones/joints: The visualized bony structures appear grossly intact. IMPRESSION: No active disease is seen in the chest. Dictated and Authenticated by: Gonsalo Miller MD. Orderin Milton Peace MD
[2025-03-31 21:43] LABS: ALT 14 U/L (10-49); AST 18 U/L (<34); Albumin 4.2 g/dL (3.4-5.0); Alkaline Phosphatase 69 U/L (46-116); Anion Gap 4.5 mmol/L (3-11); BUN 20 mg/dL (9-23); Bilirubin, Total 0.20 mg/dL (0.2-1.2); CO2 23.5 mmol/L (20.0-31.0); Calcium 9.5 mg/dL (8.3-10.6); Chloride 113 mmol/L (98-107); Glucose 118 mg/dL (74-106); Potassium 3.8 mmol/L (3.5-5.1); Sodium 141 mmol/L (136-145); Total Protein 7.5 g/dL (5.7-8.2)
[2025-03-31] MEDS: Normal Saline - Diluent 50 ML VIAL IJ (21:57)
[2025-03-31] MEDS: Omnipaque 350 MG/ML 100 ML BTL IJ (21:57)
[2025-03-31 22:00] LABS: COVID-19 PCR Negative (Negative); RSV PCR Negative (Negative)
--- NOTE | 2025-03-31 22:30 | DI.CT_ITS ---
Exam(s) CT CHEST WO EXAM: CT CHEST WO CLINICAL HISTORY: cough, L sided CP, r/o rib fracture. TECHNIQUE: Multi planar reconstructions were performed. CONTRAST MATERIAL: None COMPARISON: CT ABD PELVIS WITH CONTRAST from 11/01/[address] ABDOMEN PELVIS WO from 06/21/[address] CHEST LUNG CANCER SCREEN from 10/13/2022 FINDINGS: CHEST: LUNGS: There are no infiltrates nor pleural effusions nor pneumothorax. Single small nodule in each lower lobe noted but unchanged from CT scan of 10/13/2022. No new nodules nor pleural effusions. No new findings in trachea and mainstem bronchi. MEDIASTINUM: There is no obvious hilar nor mediastinal adenopathy. Partially visualized thyroid unremarkable.No obvious axillary adenopathy CARDIAC: Heart size is normal. There is no pericardial effusion.The diameter of the ascending thoracic aorta is enlarged, measuring 3.9 cm. The diameter of the mid aortic arch is upper normal and the diameter of the descending thoracic aorta is normal. VISUALIZED UPPER ABDOMEN:Large cyst in the upper pole the left kidney again noted. Stable adrenal nodules, unchanged from 2018 most probably adenomas. Multiple hypodensities, probably cysts in the liver are again noted.. There is a round 8 mm fat containing lesion in the body of the pancreas which is unchanged from CT scans dating back to at least October 2017. 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 No other focal pancreatic findings evident. OSSEOUS: No significant osseous lesions.No rib fractures. No vertebral fractures.. IMPRESSION: 1. No significant acute findings in the chest. Also no rib fractures, as per request. 2. Descending thoracic aorta is noted to be enlarged measuring 3.9 cm. 3. Multiple stable abdominal findings as described above RADIATION DOSE DELIVERED: 199.9mGy.cm Total DLP DATA REPOSITORY: All CT scans at this facility are submitted to the National Radiology Data Registry (NRDR) Dose Index Registry (DIR) with the [employer] (ACR). RADIATION OPTIMIZATION: All CT scans at this facility use at least one of these dose optimization techniques: automated exposure control; mA and/or kV adjustment per patient size (includes targeted exams where dose is matched to clinical indication); or iterative reconstruction.
[2025-03-31 22:36] LABS: D-Dimer 498 ng/mlFEU (<500)
--- NOTE | 2025-03-31 23:20 | DI.VRAD_ITS ---
PROCEDURE INFORMATION: Exam: CT Chest Without Contrast; Diagnostic Exam date and time: 03/31/2025 10:44 PM Age: 69 years old Clinical indication: Pain; Left-sided; Cough, L sided cp, R/O rib fracture TECHNIQUE: Imaging protocol: Diagnostic computed tomography of the chest without contrast. 3D rendering (Not supervised by radiologist): MIP and/or 3D reconstructed images were created by the technologist. COMPARISON: CT CHEST LUNG CANCER SCREEN 10/13/2022 8:05 AM FINDINGS: Lungs: Minimal emphysematous/bullous change and scarring at the lung apices. No pulmonary consolidation. Pleural spaces: No pleural effusion or pneumothorax. Heart: Normal-sized heart. Coronary artery calcification. Lymph nodes: No pathologically enlarged mediastinal or hilar lymph nodes. Vasculature: No thoracic aortic aneurysm. Diaphragm: Small hiatal hernia. Liver: 2.8 cm x 4.1 cm well-defined hypoattenuating hepatic lesion measuring 5 Hounsfield units density in the lateral left hepatic segment on image 58 of series 4 with an appearance characteristic of a hepatic cyst. Numerous scattered smaller indeterminate hypoattenuating hepatic lesions, probably representing additional smaller cysts and/or hemangiomas. Pancreas: 7 mm round fat density finding redemonstrated in the pancreatic body with an appearance characteristic of a pancreatic lipoma. Kidneys: Kidneys only partially included in the field of view. 6.1 cm x 7.4 cm left upper pole renal cyst on image 54 of series 4. Bones/joints: No acute fracture seen among the bones of the chest. No gross anterior costochondral fracture or deformity demonstrated. Spinal degenerative change with endplate irregularities and small anterior osteophytes at several levels. Soft tissues: Unremarkable. IMPRESSION: 1. No acute fracture seen among the bones of the chest. Specifically, no acute lower anterior left rib fracture or gross costal cartilage deformity identified. 2. Small hiatal hernia. Dictated and Authenticated by: Gonsalo Miller MD. Orderin Milton Peace MD
--- NOTE | 2025-03-31 23:41 | W.EDPROG ---
Date of service: 03/31/25 Time of Service: 23:41 Medical Decision Making 11:44 PM. Case signed out to me by my colleague Nata, please refer to her HPI, physical exam, assessment and plan. At time of signout we are pending CT scan results. The remainder of the patient's laboratory workup had returned normal. Negative D-dimer, negative COVID flu and RSV, negative CBC. Symptomatology was most concerning for potential rib strain sprain or fracture. CT scan returns and demonstrates no acute process. No fractures or abnormalities otherwise acutely. We did discuss the patient's incidental findings that were present on the CT scanner. We will recommend Lidoderm patches for home, patient stable for discharge. She has an incentive spirometer at home already. Discussed red flags for which to return. I have extensively reviewed the treatment plan and discharge instructions with the patient. I have addressed all patient concerns at this time. The patient was made aware of what symptoms to monitor for that would warrant a return to the emergency department. Discussed the plan with the patient, they demonstrate verbal understanding and agreement with our assessment and plan at this time. The documentation in this chart was dictated using [employer] dictation software. Please excuse any dictation errors. FINDINGS: Lungs: Minimal emphysematous/bullous change and scarring at the lung apices. No pulmonary consolidation. Pleural spaces: No pleural effusion or pneumothorax. Heart: Normal-sized heart. Coronary artery calcification. Lymph nodes: No pathologically enlarged mediastinal or hilar lymph nodes. Vasculature: No thoracic aortic aneurysm. Diaphragm: Small hiatal hernia. Liver: 2.8 cm x 4.1 cm well-defined hypoattenuating hepatic lesion measuring 5 Hounsfield units density in the lateral left hepatic segment on image 58 of series 4 with an appearance characteristic of a hepatic cyst. Numerous scattered smaller indeterminate hypoattenuating hepatic lesions, probably representing additional smaller cysts and/or hemangiomas. Pancreas: 7 mm round fat density finding redemonstrated in the pancreatic body with an appearance characteristic of a pancreatic lipoma. Kidneys: Kidneys only partially included in the field of view. 6.1 cm x 7.4 cm left upper pole renal cyst on image 54 of series 4. Bones/joints: No acute fracture seen among the bones of the chest. No gross anterior costochondral fracture or deformity demonstrated. Spinal degenerative change with endplate irregularities and small anterior osteophytes at several levels. Soft tissues: Unremarkable. IMPRESSION: 1. No acute fracture seen among the bones of the chest. Specifically, no acute lower anterior left rib fracture or gross costal cartilage deformity identified. 2. Small hiatal hernia. Thank you for allowing us to participate in the care of your patient. Dictated and Authenticated by: Gonsalo Miller MD 03/31/2025 11:20 PM Eastern Time ([place] & [place]) Discharge Plan Disposition Patient Disposition: Home Condition: Good Discharge Details Clinical Impression: Chest discomfort Primary Care Provider: Ana Blake ED Provider: Ortiz Clark Home Meds and New Rx's Prescriptions: New lidocaine [Lidoderm] 5 % adhesive patch,medicated 1 patch Topical Q24H Qty: 15 0RF No Action naproxen sodium [All Day Pain Relief] 220 mg tablet 220 mg PO BID-TID PRN Discharge Instructions Instructions: Chest Pain, Adult ED Additional Instructions: At this time your workup is returned very reassuring. You have no evidence of infection, blood clot, or other significant abnormality. Your imaging of your chest shows no fracture of your ribs, or other significant problem in your lungs. It is likely that you have a strain of the muscle between your ribs. Please use the Lidoderm patches as prescribed. They have been sent to your pharmacy on file. Please use the rib binder as needed to help with the pain, but it is critical that you are also using the incentive spirometer if you are using the binder so as to help with the prevention of pneumonia. If you notice any worsening of your symptoms, or any new symptoms such as vomiting, diarrhea, fever, chills, shortness of breath, chest pain, numbness, weakness, or fainting , please return immediately to the emergency department for reevaluation. Please follow up with your primary care provider as soon as possible for reassessment and reevaluation. As always, it was a pleasure participating in your medical care today. Stand Alone Forms: Portal Information Referrals: Ana Blake [Primary Care Provider, Medicine]
[2025-03-31] MEDS: Lidocaine 5% Patch 2 PATCH TP (23:50)
== END 2025-03-31 23:51 | disposition home or self-care (01) ==
PROVIDERS: Nurse Practitioner Family; Emergency Provider Student in an Organized Health Care Education/Training Program; PCP Family Medicine
DX: R07.9 Chest pain, unspecified (principal); R05.9 Cough, unspecified
CPT/HCPCS: 99284; 99285; 00123; 71250; 80053; 87637; 71046; 71100; 85025; 85379; J3490